=== PATIENT | male | born 1985 | race Caucasian/White ===

== ENCOUNTER 2019-12-06 01:02 | Emergency (ER) | payer OTHER ==
[~2019-12-06] VITALS: Ht 177.8 cm; Wt 68.1 kg
[2019-12-06] MEDS ORDERED: IV NORMAL SALINE 1000ML BAG 1,000 ML IV ONE (02:15)
--- NOTE | 2019-12-06 02:29 | RAD ---
Examination: CT head and cervical spine without contrast CT HEAD INDICATION: Reason: syncope, neck pain / Spl. Instructions: / History: COMPARISON: None Available. Exposure: One or more of the following individualized dose reduction techniques were utilized for this examination: 1. Automated exposure control 2. Adjustment of the mA and/or kV according to patient size 3. Use of iterative reconstruction technique TECHNIQUE: 5 mm contiguous axial images were obtained from the skull base to the vertex in both bone and soft tissue algorithm. FINDINGS: No abnormal attenuation within the brain parenchyma. No evidence of acute intracranial hemorrhage. No extra-axial fluid collections. No mass effect or midline shift. Ventricular size is appropriate. Basal cisterns are patent. No fractures identified.Cardenas-white differentiation is preserved.Globes and orbits are within normal limits. Paranasal sinuses and mastoid air cells are clear. IMPRESSION: Unremarkable CT examination of the head without contrast, as above. Specifically, no evidence of an acute intracranial abnormality. CT CERVICAL SPINE INDICATION: Reason: syncope, neck pain / Spl. Instructions: / History: COMPARISON: None Available. Technique: 2.5 mm contiguous axial images were obtained from the skull base through the cervicothoracic junction in both bone and soft tissue algorithm. Additional sagittal and coronal reconstructions were also performed. FINDINGS: Vertebral body height and alignment are maintained. Cervical lordosis is preserved. The lateral masses of C1 are aligned upon C2. No fractures identified. The bony canal is patent throughout. No significant degenerative changes are identified. The paraspinous soft tissues are unremarkable. Visualized intracranial contents are unremarkable. Lung apices are clear. IMPRESSION: Unremarkable CT examination of the cervical spine, as above. Specifically, no fractures are seen. Electronically signed by: Andi Ambrose MD (12/06/2019 2:27 AM) [id number]
[2019-12-06 03:17] LABS: BASO # 0.1 x10^3/uL (0.0-0.2); BASO % 1 % (0-3); EOS # 0.1 x10^3/uL (0.0-0.7); EOS % 1 % (0-3); HEMATOCRIT 31.9 % (39.0-53.0); HEMOGLOBIN 10.5 g/dL (13.0-17.5); LYMPH # 1.4 x10^3/uL (1.0-4.8); LYMPH % 16 % (24-48); MEAN CORPUSCULAR HEMOGLOBIN 26 pg (25-35); MEAN CORPUSCULAR HGB CONC 33 g/dL (31-37); MEAN CORPUSCULAR VOLUME 80 fL (79-100); MONO # 0.5 x10^3/uL (0.0-1.1); MONO % 6 % (0-9); NEUT # 7.1 x10^3/uL (1.8-7.7); NEUT % 77 % (31-73); PLATELET COUNT 436 x10^3/uL (140-400); RED BLOOD COUNT 4.01 x10^6/uL (4.30-5.70); WHITE BLOOD COUNT 9.2 x10^3/uL (4.0-11.0)
[2019-12-06 03:19] LABS: BILIRUBIN,URINE NEGATIVE (NEG); CLARITY,URINE CLEAR; COLOR,URINE YELLOW; NITRITE,URINE POSITIVE (NEG); PROTEIN,URINE NEGATIVE (NEG-TRACE); UROBILINOGEN,URINE 0.2 mg/dL (0.2 mg/dL)
[2019-12-06 03:25] LABS: AMPHETAMINE/METHAMPHETAMINE NEG (NEG); BARBITURATES NEG (NEG); BENZODIAZEPINES NEG (NEG); CANNABINOIDS NEG (NEG); COCAINE NEG (NEG); METHADONE NEG (NEG); OPIATES NEG (NEG); PHENCYCLIDINE NEG (NEG)
[2019-12-06 03:30] LABS: SQUAMOUS EPITHELIAL CELL,UR FEW /LPF
[2019-12-06 03:31] LABS: BACTERIA,URINE FEW /HPF (0-FEW); RBC,URINE 0 /HPF (0-2)
[2019-12-06 03:32] LABS: CALCIUM 8.9 mg/dL (8.5-10.1); CREATININE 1.7 mg/dL (0.7-1.3); GFR 46.1; POTASSIUM 4.4 mmol/L (3.5-5.1)
[2019-12-06 03:37] LABS: ALBUMIN 3.1 g/dL (3.4-5.0); ALBUMIN/GLOBULIN RATIO 0.5 (1.0-1.7); MAGNESIUM 2.2 mg/dL (1.8-2.4); TOTAL BILIRUBIN 0.1 mg/dL (0.2-1.0)
--- NOTE | 2019-12-06 04:35 | PHYS DOC ---
Past Medical History Past Medical History: Hypertension, Stroke, Other Additional Past Medical Histor: Paraplegia, Muscular Dystrophy, Neurogenic Bladder, Colostomy Past Surgical History: Other Additional Past Surgical Histo: spinal fusion,gastrostomy,colostomy, suprapubic cathether Smoking Status: Former Smoker Alcohol Use: None General Adult EDM: Chief Complaint: LOSS OF CONSCIOUSNESS HPI: HPI: Patient is a 34 year old [f__sex] who presents with [] Review of Systems: Review of Systems: Constitutional: Denies fever or chills. [] Eyes: Denies change in visual acuity. [] HENT: Denies nasal congestion or sore throat. [] Respiratory: Denies cough or shortness of breath. [] Cardiovascular: Denies chest pain or edema. [] GI: Denies abdominal pain, nausea, vomiting, bloody stools or diarrhea. [] : Denies dysuria. [] Musculoskeletal: Denies back pain or joint pain. [] Integument: Denies rash. [] Neurologic: Denies headache, focal weakness or sensory changes. [] Endocrine: Denies polyuria or polydipsia. [] Lymphatic: Denies swollen glands. [] Psychiatric: Denies depression or anxiety. [] Heart Score: Risk Factors: Risk Factors: DM, Current or recent (<one month) smoker, HTN, HLP, family history of CAD, obesity. Risk Scores: Score 0 - 3: 2.5% MACE over next 6 weeks - Discharge Home Score 4 - 6: 20.3% MACE over next 6 weeks - Admit for Clinical Observation Score 7 - 10: 72.7% MACE over next 6 weeks - Early Invasive Strategies Current Medications: Current Medications Medications (Trade) Dose Ordered Sig/Valentina Start Time Stop Time Status Last Admin Dose Admin Sodium Chloride 1,000 ml @ 1,000 mls/hr 1X ONCE 12/06/19 02:15 12/06/19 03:14 DC 12/06/19 03:04 1,000 MLS/HR Allergies: Allergies: Allergies Coded Allergies Type Severity Reaction Last Updated Verified Sulfa (Sulfonamide Antibiotics) Allergy Intermediate Rash 12/06/19 Yes Physical Exam: PE: Constitutional: Well developed, well nourished, no acute distress, non-toxic appearance. [] HENT: Normocephalic, atraumatic, bilateral external ears normal, oropharynx moist, no oral exudates, nose normal. [] Eyes: PERRLA, EOMI, conjunctiva normal, no discharge. [] Neck: Normal range of motion, no tenderness, supple, no stridor. [] Cardiovascular:Heart rate regular rhythm, no murmur [] Lungs & Thorax: Bilateral breath sounds clear to auscultation [] Abdomen: Bowel sounds normal, soft, no tenderness, no masses, no pulsatile masses. [] Skin: Warm, dry, no erythema, no rash. [] Back: No tenderness, no CVA tenderness. [] Extremities: No tenderness, no cyanosis, no clubbing, ROM intact, no edema. [] Neurologic: Alert and oriented X 3, normal motor function, normal sensory function, no focal deficits noted. [] Psychologic: Affect normal, judgement normal, mood normal. [] Current Patient Data: Labs: Laboratory Tests Test 12/06/19 02:55 White Blood Count 9.2 x10^3/uL (4.0-11.0) Red Blood Count 4.01 x10^6/uL (4.30-5.70) L Hemoglobin 10.5 g/dL (13.0-17.5) L Hematocrit 31.9 % (39.0-53.0) L Mean Corpuscular Volume 80 fL (79-100) Mean Corpuscular Hemoglobin 26 pg (25-35) Mean Corpuscular Hemoglobin Concent 33 g/dL (31-37) Red Cell Distribution Width 18.0 % (11.5-14.5) H Platelet Count 436 x10^3/uL (140-400) H Neutrophils (%) (Auto) 77 % (31-73) H Lymphocytes (%) (Auto) 16 % (24-48) L Monocytes (%) (Auto) 6 % (0-9) Eosinophils (%) (Auto) 1 % (0-3) Basophils (%) (Auto) 1 % (0-3) Neutrophils # (Auto) 7.1 x10^3/uL (1.8-7.7) Lymphocytes # (Auto) 1.4 x10^3/uL (1.0-4.8) Monocytes # (Auto) 0.5 x10^3/uL (0.0-1.1) Eosinophils # (Auto) 0.1 x10^3/uL (0.0-0.7) Basophils # (Auto) 0.1 x10^3/uL (0.0-0.2) Urine Collection Type U cath Urine Color Yellow Urine Clarity Clear Urine pH 6.0 (<5.0-8.0) Urine Specific [place] 1.010 (1.000-1.030) Urine Protein Negative mg/dL (NEG-TRACE) Urine Glucose (UA) Negative mg/dL (NEG) Urine Ketones (Stick) Negative mg/dL (NEG) Urine Blood Negative (NEG) Urine Nitrite Positive (NEG) Urine Bilirubin Negative (NEG) Urine Urobilinogen Dipstick 0.2 mg/dL (0.2 mg/dL) Urine Leukocyte Esterase Moderate (NEG) Urine RBC 0 /HPF (0-2) Urine WBC 11-20 /HPF (0-4) Urine Squamous Epithelial Cells Few /LPF Urine Bacteria Few /HPF (0-FEW) Urine Mucus Slight /LPF Sodium Level 142 mmol/L (136-145) Potassium Level 4.4 mmol/L (3.5-5.1) Chloride Level 104 mmol/L (98-107) Carbon Dioxide Level 29 mmol/L (21-32) Anion Gap 9 (6-14) Blood Urea Nitrogen 29 mg/dL (8-26) H Creatinine 1.7 mg/dL (0.7-1.3) H Estimated GFR (Cockcroft-Gault) 46.1 BUN/Creatinine Ratio 17 (6-20) Glucose Level 83 mg/dL (70-99) Lactic Acid Level 0.8 mmol/L (0.4-2.0) Calcium Level 8.9 mg/dL (8.5-10.1) Magnesium Level 2.2 mg/dL (1.8-2.4) Total Bilirubin 0.1 mg/dL (0.2-1.0) L Aspartate Amino Transferase (AST) 21 U/L (15-37) Alanine Aminotransferase (ALT) 26 U/L (16-63) Alkaline Phosphatase 70 U/L (46-116) Creatine Kinase 200 U/L (39-308) Creatine Kinase MB (Mass) 1.6 ng/mL (0.0-3.6) Creatine Kinase MB Relative Index 0.8 % (0-4) Troponin I Quantitative < 0.017 ng/mL (0.000-0.055) Total Protein 9.0 g/dL (6.4-8.2) H Albumin 3.1 g/dL (3.4-5.0) L Albumin/Globulin Ratio 0.5 (1.0-1.7) L Urine Opiates Screen Neg (NEG) Urine Methadone Screen Neg (NEG) Urine Barbiturates Neg (NEG) Urine Phencyclidine Screen Neg (NEG) Urine Amphetamine/Methamphetamine Neg (NEG) Urine Benzodiazepines Screen Neg (NEG) Urine Cocaine Screen Neg (NEG) Urine Cannabinoids Screen Neg (NEG) Ethyl Alcohol Level < 10 mg/dL (0-10) Urine Ethyl Alcohol Neg (NEG) Laboratory Tests 12/06/19 02:55 Laboratory Tests 12/06/19 02:55 Vital Signs: Vital Signs Date Time Temp Pulse Resp B/P (MAP) Pulse Ox O2 Delivery O2 Flow Rate FiO2 12/06/19 01:30 98.0 74 16 136/87 (103) 97 Room Air 98.0 EKG: EKG: @0218 NSR at 70bpm, NO ST elevation, QRS 92ms, QT/QTc 372/404ms Radiology/Procedures: Radiology/Procedures: [] Course & Med Decision Making: Course & Med Decision Making Pertinent Labs and Imaging studies reviewed. (See chart for details) [] Dragon Disclaimer: Dragon Disclaimer: This electronic medical record was generated, in whole or in part, using a voice recognition dictation system. Departure Departure Impression: Primary Impression: Syncope Qualified Codes: R55 - Syncope and collapse Additional Impressions: Urinary tract infection Qualified Codes: T83.511A - Infection and inflammatory reaction due to indwelling urethral catheter, initial encounter; N39.0 - Urinary tract inf ection, site not specified Chronic ulcer of sacral region Qualified Codes: L98.492 - Non-pressure chronic ulcer of skin of other sites with fat layer exposed Disposition: HOME, SELF-CARE ([facility]) Condition: STABLE Referrals: NO PCP (PCP) Patient Instructions: Catheter-Associated Urinary Tract Infection FAQs - MORROW, Pressure Ulcer, Syncope, [id number] Scripts Cephalexin (KEFLEX) 500 Mg Capsule 500 MG PO TID for 7 Days, #21 CAP Prov: INES MORE DO 12/06/19 Justicifation of Admission Dx: Justifications for Admission: Justification of Admission Dx: N/A MORE,INES R DO Dec 06, 2019 04:35
[2019-12-06 04:40] LABS: PROTHROMBIN TIME PATIENT 14.1 SEC (11.7-14.0)
[2019-12-06] MEDS ORDERED: cefTRIAXone IV Push 1 GM VIAL. IVP ONE (05:00)
[2019-12-06] MEDS ORDERED: CEPH-264 PO (05:44)
--- NOTE | 2019-12-06 06:18 | EKG ---
[facility] [address] [place] [address] Test Date: 2019-12-06 Test Time: 02:18:34 Pat Name: JESUS VARGAS Department: Room: Gender: M [employer]: : 1985 Requested By: INES MORE Order Number: [id number] Reading MD: Measurements Intervals [place] Rate: 70 P: CA: QRS: 56 QRSD: 92 T: 65 QT: 372 QTc: 404 Interpretive Statements IRREGULAR RHYTHM, NO P-WAVE FOUND OTHERWISE NORMAL ECG RI6.02 No previous ECG available for comparison
[2019-12-06 06:53] VITALS: BP 136/95
== END 2019-12-06 06:27 | disposition home or self-care (01) ==
LOC: EEVIPCON 01:02 → ER 01:02
DX: T83.511A Infection and inflammatory reaction due to indwelling urethral catheter, initial encounter (principal); R55 Syncope and collapse; N39.0 Urinary tract infection, site not specified; L98.492 Non-pressure chronic ulcer of skin of other sites with fat layer exposed; I10 Essential (primary) hypertension; Z86.73 Personal history of transient ischemic attack (TIA), and cerebral infarction without residual deficits; Z87.891 Personal history of nicotine dependence; Z93.1 Gastrostomy status; Z93.3 Colostomy status; Z88.2 Allergy status to sulfonamides; Y84.6 Urinary catheterization as the cause of abnormal reaction of the patient, or of later complication, without mention of misadventure at the time of the procedure; Y92.89 Other specified places as the place of occurrence of the external cause
CPT/HCPCS: 36415; 70450; 72125; 80053; 80307; 81001; 82553; 83605; 83735; 84484; 85025; 85610; 85730; 87086; 93005; 96361; 96374; 99285; G0480; J0696; J7030

== ENCOUNTER 2019-12-21 01:12 | Inpatient (IN) | payer OTHER ==
[2019-12-21] VITALS (7 sets, daily range): BP systolic 101–123; BP diastolic 56–72
[~2019-12-21] VITALS: Ht 177.8 cm; Wt 75.1 kg
[~2019-12-21 01:12] MED LIST: CEPH-264 PO
[2019-12-21 02:03] LABS: BASO % 0 % (0-3); EOS % 0 % (0-3); HEMATOCRIT 28.5 % (39.0-53.0); HEMOGLOBIN 9.3 g/dL (13.0-17.5); LYMPH # 0.8 x10^3/uL (1.0-4.8); LYMPH % 7 % (24-48); MEAN CORPUSCULAR HEMOGLOBIN 26 pg (25-35); MEAN CORPUSCULAR HGB CONC 33 g/dL (31-37); MEAN CORPUSCULAR VOLUME 80 fL (79-100); MONO % 8 % (0-9); NEUT # 10.6 x10^3/uL (1.8-7.7); NEUT % 85 % (31-73); PLATELET COUNT 404 x10^3/uL (140-400); RED BLOOD COUNT 3.54 x10^6/uL (4.30-5.70); RED CELL DISTRIBUTION WIDTH 18.9 % (11.5-14.5); WHITE BLOOD COUNT 12.5 x10^3/uL (4.0-11.0)
[2019-12-21 02:11] LABS: CALCIUM 8.4 mg/dL (8.5-10.1); CREATININE 2.1 mg/dL (0.7-1.3); GFR 36.1; POTASSIUM 3.6 mmol/L (3.5-5.1)
[2019-12-21 02:17] LABS: ALBUMIN 2.2 g/dL (3.4-5.0); ALBUMIN/GLOBULIN RATIO 0.4 (1.0-1.7); TOTAL BILIRUBIN 0.1 mg/dL (0.2-1.0); TOTAL PROTEIN 8.1 g/dL (6.4-8.2)
[2019-12-21 02:18] LABS: BILIRUBIN,URINE NEGATIVE (NEG); CLARITY,URINE CLEAR; COLOR,URINE YELLOW; NITRITE,URINE NEGATIVE (NEG); PROTEIN,URINE 30 mg/dL (NEG-TRACE); UROBILINOGEN,URINE 0.2 mg/dL (0.2 mg/dL)
--- NOTE | 2019-12-21 02:20 | RAD ---
CHEST AP ONLY INDICATION: Reason: FEVER / Spl. Instructions: / History: . COMPARISON STUDY: None. FINDINGS: Lungs: Normal lung volume. No pulmonary mass or consolidation. The tracheobronchial tree and hilar structures are normal. Pleura: No pleural effusion or pneumothorax. Heart and Mediastinum: The cardiomediastinal silhouette is normal. The great vessels of the thorax are normal. IMPRESSION: No acute cardiopulmonary process. Electronically signed by: Luis A Taylor MD (12/21/2019 2:17 AM) [facility]
[2019-12-21 02:27] LABS: SQUAMOUS EPITHELIAL CELL,UR OCC /LPF
[2019-12-21 02:28] LABS: BACTERIA,URINE MANY /HPF (0-FEW); WBC,URINE 20-40 /HPF (0-4)
[2019-12-21] MEDS ORDERED: IV NORMAL SALINE 1000ML BAG 1,000 ML IV ONE ×2 (02:30→09:45)
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
[2019-12-21] MEDS ORDERED: PIP/TAZO PER PHARMACY MC PRN (02:45)
[2019-12-21] MEDS: PIPERACILLIN/TAZOBACTAM 3.375 GM in IV NORMAL SALINE 50ML 50 ML IV SCH ×3 (03:30→18:47)
--- NOTE | 2019-12-21 04:59 | NUR ---
The patient, JESUS VARGAS, 34 y/o, M admitted by ROSENDA MORALEZ MD, was given written information regarding hospital policies, unit procedures and contact persons. Valuables were checked and left with him.
[2019-12-21] MEDS ORDERED: ONDANSETRON PF 4 MG/2 ML VIAL. IV PRN (07:30)
--- NOTE | 2019-12-21 08:49 | PDOC ---
Infectious Disease Note Vital Sign Vital Signs Vital Signs Date Time Temp Pulse Resp B/P (MAP) Pulse Ox O2 Delivery O2 Flow Rate FiO2 12/21/19 07:00 101.7 137 20 119/60 (79) 99 Room Air 101.7 Labs Lab Laboratory Tests Test 12/21/19 01:38 12/21/19 01:51 White Blood Count 12.5 x10^3/uL (4.0-11.0) Red Blood Count 3.54 x10^6/uL (4.30-5.70) Hemoglobin 9.3 g/dL (13.0-17.5) Hematocrit 28.5 % (39.0-53.0) Mean Corpuscular Volume 80 fL (79-100) Mean Corpuscular Hemoglobin 26 pg (25-35) Mean Corpuscular Hemoglobin Concent 33 g/dL (31-37) Red Cell Distribution Width 18.9 % (11.5-14.5) Platelet Count 404 x10^3/uL (140-400) Neutrophils (%) (Auto) 85 % (31-73) Lymphocytes (%) (Auto) 7 % (24-48) Monocytes (%) (Auto) 8 % (0-9) Eosinophils (%) (Auto) 0 % (0-3) Basophils (%) (Auto) 0 % (0-3) Neutrophils # (Auto) 10.6 x10^3/uL (1.8-7.7) Lymphocytes # (Auto) 0.8 x10^3/uL (1.0-4.8) Monocytes # (Auto) 1.0 x10^3/uL (0.0-1.1) Eosinophils # (Auto) 0.0 x10^3/uL (0.0-0.7) Basophils # (Auto) 0.0 x10^3/uL (0.0-0.2) Sodium Level 138 mmol/L (136-145) Potassium Level 3.6 mmol/L (3.5-5.1) Chloride Level 103 mmol/L (98-107) Carbon Dioxide Level 22 mmol/L (21-32) Anion Gap 13 (6-14) Blood Urea Nitrogen 25 mg/dL (8-26) Creatinine 2.1 mg/dL (0.7-1.3) Estimated GFR (Cockcroft-Gault) 36.1 BUN/Creatinine Ratio 12 (6-20) Glucose Level 122 mg/dL (70-99) Lactic Acid Level 1.2 mmol/L (0.4-2.0) Calcium Level 8.4 mg/dL (8.5-10.1) Total Bilirubin 0.1 mg/dL (0.2-1.0) Aspartate Amino Transf (AST/SGOT) 19 U/L (15-37) Alanine Aminotransferase (ALT/SGPT) 20 U/L (16-63) Alkaline Phosphatase 90 U/L (46-116) Total Protein 8.1 g/dL (6.4-8.2) Albumin 2.2 g/dL (3.4-5.0) Albumin/Globulin Ratio 0.4 (1.0-1.7) Urine Collection Type Unknown Urine Color Yellow Urine Clarity Clear Urine pH 6.0 (<5.0-8.0) Urine Specific [place] 1.010 (1.000-1.030) Urine Protein 30 mg/dL (NEG-TRACE) Urine Glucose (UA) Negative mg/dL (NEG) Urine Ketones (Stick) Negative mg/dL (NEG) Urine Blood Trace (NEG) Urine Nitrite Negative (NEG) Urine Bilirubin Negative (NEG) Urine Urobilinogen Dipstick 0.2 mg/dL (0.2 mg/dL) Urine Leukocyte Esterase Moderate (NEG) Urine RBC 1-2 /HPF (0-2) Urine WBC 20-40 /HPF (0-4) Urine Squamous Epithelial Cells Occ /LPF Urine Bacteria Many /HPF (0-FEW) Urine Mucus Slight /LPF Objective Assessment Fever Leukocytosis Sulfa allergy - rash ? UTI - states SP changed in ER MAJOR Multiple wounds paraplegia H/o osteomyelitis of right hip Plan Plan of Care Cont Zosyn Add Dapto and Check CK Labs in am F/u cults Wound care per wound team CT right hip/pelvis - no Contrast with AMJOR # [id number] BEATRIZ FLORES MD Dec 21, 2019 08:49
--- NOTE | 2019-12-21 09:09 | EKG ---
[facility] [address] [place] [address] Test Date: 2019-12-21 Test Time: 02:13:43 Pat Name: JESUS VARGAS Department: Room: Gender: M Field Administrative Assistant: [id number] : 1985 Requested By: MAKI ANDERSON Order Number: [id number] Reading MD: Measurements Intervals [place] Rate: 134 P: 62 MS: 118 QRS: 52 QRSD: 88 T: 35 QT: 292 QTc: 436 Interpretive Statements SINUS TACHYCARDIA LOW LIMB LEAD VOLTAGE QRS(T) CONTOUR ABNORMALITY CONSIDER ANTEROSEPTAL MYOCARDIAL DAMAGE POSSIBLY ABNORMAL ECG RI6.01 No previous ECG available for comparison
[2019-12-21] MEDS: ENOXAPARIN 40 MG/0.4 ML SYRINGE. SQ SCH (09:29)
[2019-12-21] MEDS: ACETAMINOPHEN 325 MG TABLET. PO PRN (09:31)
[2019-12-21] MEDS ORDERED: HYDROcodone/APAP 5/325MG 1 TAB TABLET PO PRN (09:45)
[2019-12-21] MEDS: MORPHINE SULFATE 2 MG/ML VIAL. IV PRN ×3 (10:08→22:05)
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
[2019-12-21] MEDS ORDERED: BACL20TA PO (11:35)
[2019-12-21] MEDS ORDERED: TAMS0.4C97 PO (11:35)
[2019-12-21] MEDS ORDERED: GABA600T7 PO (11:35)
[2019-12-21] MEDS ORDERED: HYDR25TA PO (11:35)
[2019-12-21] MEDS ORDERED: FERR325T14 PO (11:35)
[2019-12-21] MEDS ORDERED: IBUP-1027 PO (11:35)
[2019-12-21] MEDS ORDERED: FOLI0.8C PO (11:35)
[2019-12-21] MEDS ORDERED: CYCL10TA2 PO (11:35)
[2019-12-21] MEDS ORDERED: ACET500T68 PO (11:35)
[2019-12-21] MEDS ORDERED: AMLO5TAB10 PO (11:35)
[2019-12-21] MEDS ORDERED: CITA20TA9 PO (11:35)
[2019-12-21] MEDS ORDERED: OMEP40CA45 PO (11:35)
[2019-12-21] MEDS ORDERED: OXYB10TA26 PO (11:35)
[2019-12-21] MEDS ORDERED: IBUP-1007 PO (11:35)
[2019-12-21] MEDS ORDERED: PNV1TABL25 PO (11:36)
[2019-12-21] MEDS ORDERED: ceftriaxone (11:44)
[2019-12-21] MEDS ORDERED: KETO60VI IM (11:44)
[2019-12-21] MEDS: IV NORMAL SALINE 1000ML BAG 1,000 ML IV SCH (12:07)
[2019-12-21] MEDS: DAPTOmycin (GENERIC) IVPB 450 MG in IV NORMAL SALINE 50ML 50 ML IV SCH (12:07)
[2019-12-21 13:02] LABS: HEMATOCRIT 23.6 % (39.0-53.0); HEMOGLOBIN 7.8 g/dL (13.0-17.5); RED BLOOD COUNT 2.94 x10^6/uL (4.30-5.70); RED CELL DISTRIBUTION WIDTH 18.9 % (11.5-14.5); WHITE BLOOD COUNT 10.6 x10^3/uL (4.0-11.0)
[2019-12-21 13:06] LABS: PROTHROMBIN TIME PATIENT 16.5 SEC (11.7-14.0)
[2019-12-21 13:10] LABS: CALCIUM 7.6 mg/dL (8.5-10.1); GFR 38.2; MAGNESIUM 1.1 mg/dL (1.8-2.4); POTASSIUM 3.8 mmol/L (3.5-5.1)
[2019-12-21] MEDS: MULTIVITAMIN with MINERAL TABLET. PO SCH (13:11)
[2019-12-21] MEDS ORDERED: MAGNESIUM SULFATE 4GM 100 ML IV ONE (13:45)
--- NOTE | 2019-12-21 14:17 | NUR ---
Wound Care Wound care will followup tomorrow after covid results are back. Discussed POC with Jeana LONG, Clinitron bed will be ordered
--- NOTE | 2019-12-21 14:44 | RAD ---
CT scan of the pelvis without contrast 12/21/2019 CLINICAL HISTORY: Right hip infection. TECHNIQUE: Unenhanced, contiguous, 0.625 mm axial sections were obtained through the pelvis and both hips. 3 mm reconstructed sagittal, axial and coronal images were obtained. One or more of the following individualized dose reduction techniques were utilized for this study: 1. Automated exposure control. 2. Adjustment of the mA and/or kV according to patient size. 3. Use of iterative reconstruction technique. FINDINGS: Pedicle screws are seen bilaterally at L3-L4. Stabilizing rods extend superiorly to the lower thoracic spine. A colostomy is seen within the left lower quadrant of the abdomen. A suprapubic catheter is noted in place. The urinary bladder is contracted. A sacral ulcer is seen which measures approximately 9.3 cm in greatest diameter. Increased density is seen within the adjacent soft tissue structures. This extends to abut the inferior sacrum/coccyx. The majority of the coccyx has been eroded as is the inferior aspect of the sacrum. This findings likely reflect chronic osteomyelitis. An ulcer is seen involving the left inferior gluteal region. The ulcer measures 9.5 cm in greatest diameter. It extends to abut the posterior acetabulum. Erosion of the ischial tuberosity to include the majority of the inferior left pubic ramus is noted. An ulcer is seen involving the inferior right gluteal region. This measures 9.4 cm in size. This extends to involve the posterior right acetabulum. The right ischial tuberosity is eroded. The majority of the right inferior pubic ramus have been eroded/destroyed. Heterotopic ossification is seen surrounding the proximal right femurs, right greater than left. Increased soft tissue density is seen surrounding the intertrochanteric region on the proximal right femur consistent with inflammatory/infectious process. No abnormal fluid collection is seen to suggest evidence of an abscess. Small collections of air is seen posterior to the right hip and adjacent to heterotopic bone in this region of the right trochanter suggesting an infectious process. No dislocation is seen. IMPRESSION: Large sacral/gluteal ulcers are seen throughout the pelvis as discussed above. Increased soft tissue density is seen consistent with infectious process. Bony destruction of the inferior sacrum/coccyx, the initial tuberosities and inferior pubic pubic rami are seen consistent with chronic osteomyelitis. This appears to involve the right hip hip and proximal femurs, right greater than left. No abscess is noted. Electronically signed by: Kenroy Corbin MD (12/21/2019 2:41 PM) [id number]
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
[2019-12-21] MEDS: hydrOXYzine 25 MG TABLET PO SCH ×2 (21:00→22:06)
--- NOTE | 2019-12-21 21:19 | NUR ---
Pt received his morphine immediately after removing from omnicell prior to woundcare procedure. Wound care and dressing change took place at approximately 1650.
[2019-12-21] MEDS: GABAPENTIN 400 MG CAPSULE. PO SCH (22:05)
[2019-12-21] MEDS: LACTOBACILLUS RHAMNOSUS GG 1 CAPSULE. PO SCH (22:06)
[2019-12-21] MEDS: CITALOPRAM 20 MG TABLET. PO SCH (22:06)
[2019-12-21] MEDS: TAMSULOSIN 0.4 MG CAP.ER.24H. PO SCH (22:06)
[2019-12-21] MEDS: CYCLOBENZAPRINE 10 MG TABLET. PO SCH (22:06)
[2019-12-21] MEDS: OXYBUTYNIN CHLORIDE 5 MG TABLET PO SCH (22:06)
[2019-12-21] MEDS: HYDROcodone/APAP 10/325 1 TAB TABLET PO PRN (22:56)
[2019-12-22] MEDS: IV NORMAL SALINE 1000ML BAG 1,000 ML IV SCH ×2 (00:15→12:25)
[2019-12-22] MEDS: PIPERACILLIN/TAZOBACTAM 3.375 GM in IV NORMAL SALINE 50ML 50 ML IV SCH ×4 (00:15→17:28)
[2019-12-22] MEDS: MORPHINE SULFATE 2 MG/ML VIAL. IV PRN ×5 (02:29→21:30)
[2019-12-22 03:50] VITALS: BP 107/67
[2019-12-22] MEDS: HYDROcodone/APAP 10/325 1 TAB TABLET PO PRN ×4 (05:24→17:27)
[2019-12-22 07:00] VITALS: BP 111/59
[2019-12-22 07:25] LABS: BASO % 1 % (0-3); EOS # 0.1 x10^3/uL (0.0-0.7); EOS % 2 % (0-3); HEMATOCRIT 24.6 % (39.0-53.0); HEMOGLOBIN 8.2 g/dL (13.0-17.5); LYMPH # 0.9 x10^3/uL (1.0-4.8); LYMPH % 15 % (24-48); MEAN CORPUSCULAR HEMOGLOBIN 27 pg (25-35); MEAN CORPUSCULAR HGB CONC 33 g/dL (31-37); MEAN CORPUSCULAR VOLUME 80 fL (79-100); MONO # 0.8 x10^3/uL (0.0-1.1); MONO % 13 % (0-9); NEUT # 4.5 x10^3/uL (1.8-7.7); NEUT % 70 % (31-73); PLATELET COUNT 350 x10^3/uL (140-400); RED BLOOD COUNT 3.06 x10^6/uL (4.30-5.70); WHITE BLOOD COUNT 6.4 x10^3/uL (4.0-11.0)
[2019-12-22 07:28] LABS: CREATININE 1.9 mg/dL (0.7-1.3); GFR 40.5; POTASSIUM 3.5 mmol/L (3.5-5.1)
--- NOTE | 2019-12-22 08:50 | PDOC ---
Infectious Disease Note Subjective Subjective Still has pain in hip but not generalized. No F/C/s/N/v/D/SOA SPC changed 12/20 ROS ROS o/w neg Vital Sign Vital Signs Vital Signs Date Time Temp Pulse Resp B/P (MAP) Pulse Ox O2 Delivery O2 Flow Rate FiO2 12/22/19 06:26 Room Air 12/22/19 03:50 97.6 106 18 107/67 (80) 96 97.6 Physical Exam PHYSICAL EXAM CONSTITUTIONAL: He is cooperative. He is in no acute distress. HEENT: Pupils equal and reactive. He has normal conjunctivae. Oral cavity: Pharynx is clear. He has good dentition. NECK: Supple, no JVD. LUNGS: Clear to auscultation. HEART: S1 and S2, trace tachy. ABDOMEN: Soft. Colostomy without complications. Suprapubic catheter without complications. SPC: clean EXTREMITIES: No clubbing, cyanosis. His left great toe has an open wound, appears to be clean, no purulence. SKIN: Warm to touch without generalized rash. He has multiple tattoos. He has multiple wounds that are dressed NEUROLOGIC: He is paraplegic, answering questions appropriately. PSYCHIATRIC: Affect is appropriate. Labs Lab Laboratory Tests Test 12/21/19 12:00 12/21/19 12:20 12/22/19 07:00 White Blood Count 10.6 x10^3/uL (4.0-11.0) 6.4 x10^3/uL (4.0-11.0) Red Blood Count 2.94 x10^6/uL (4.30-5.70) 3.06 x10^6/uL (4.30-5.70) Hemoglobin 7.8 g/dL (13.0-17.5) 8.2 g/dL (13.0-17.5) Hematocrit 23.6 % (39.0-53.0) 24.6 % (39.0-53.0) Mean Corpuscular Volume 80 fL (79-100) 80 fL (79-100) Mean Corpuscular Hemoglobin 27 pg (25-35) 27 pg (25-35) Mean Corpuscular Hemoglobin Concent 33 g/dL (31-37) 33 g/dL (31-37) Red Cell Distribution Width 18.9 % (11.5-14.5) 19.0 % (11.5-14.5) Platelet Count 340 x10^3/uL (140-400) 350 x10^3/uL (140-400) Prothrombin Time 16.5 SEC (11.7-14.0) Prothromb Time International Ratio 1.4 (0.8-1.1) Sodium Level 141 mmol/L (136-145) 142 mmol/L (136-145) Potassium Level 3.8 mmol/L (3.5-5.1) 3.5 mmol/L (3.5-5.1) Chloride Level 109 mmol/L (98-107) 109 mmol/L (98-107) Carbon Dioxide Level 20 mmol/L (21-32) 21 mmol/L (21-32) Anion Gap 12 (6-14) 12 (6-14) Blood Urea Nitrogen 20 mg/dL (8-26) 19 mg/dL (8-26) Creatinine 2.0 mg/dL (0.7-1.3) 1.9 mg/dL (0.7-1.3) Estimated GFR (Cockcroft-Gault) 38.2 40.5 Glucose Level 101 mg/dL (70-99) 117 mg/dL (70-99) Calcium Level 7.6 mg/dL (8.5-10.1) 8.0 mg/dL (8.5-10.1) Magnesium Level 1.1 mg/dL (1.8-2.4) 2.0 mg/dL (1.8-2.4) Neutrophils (%) (Auto) 70 % (31-73) Lymphocytes (%) (Auto) 15 % (24-48) Monocytes (%) (Auto) 13 % (0-9) Eosinophils (%) (Auto) 2 % (0-3) Basophils (%) (Auto) 1 % (0-3) Neutrophils # (Auto) 4.5 x10^3/uL (1.8-7.7) Lymphocytes # (Auto) 0.9 x10^3/uL (1.0-4.8) Monocytes # (Auto) 0.8 x10^3/uL (0.0-1.1) Eosinophils # (Auto) 0.1 x10^3/uL (0.0-0.7) Basophils # (Auto) 0.0 x10^3/uL (0.0-0.2) Micro IMPRESSION: Large sacral/gluteal ulcers are seen throughout the pelvis as discussed above. Increased soft tissue density is seen consistent with infectious process. Bony destruction of the inferior sacrum/coccyx, the initial tuberosities and inferior pubic pubic rami are seen consistent with chronic osteomyelitis. This appears to involve the right hip hip and proximal femurs, right greater than left. No abscess is noted. GRAM NEGATIVE RODS:RARE 12/20 GRAM POSITIVE COCCI:FEW SQUAMOUS EPI CELL:RARE Microbiology 12/21/19 Gram Stain - Final, Resulted 12/21/19 Aerobic Culture, Resulted Pending 12/21/19 Blood Culture - Preliminary, Resulted NO GROWTH AFTER 1 DAY Objective Assessment Fever -improving Leukocytosis - better Sulfa allergy - rash ? UTI - states SP changed in ER Hip pain - chronic but states is worsening. CT with chronic Osteomyelitis which is not treated with abx MAJOR - some better Multiple wounds paraplegia H/o osteomyelitis of right hip Elevated CK ? from hip Plan Plan of Care Cont Zosyn Added Dapto and repeat CK in am F/u cults Wound care per wound team Ortho eval D/w nursing BEATRIZ FLORES MD Dec 22, 2019 08:50
[2019-12-22] MEDS: MULTIVITAMIN with MINERAL TABLET. PO SCH (08:55)
[2019-12-22] MEDS: CYCLOBENZAPRINE 10 MG TABLET. PO SCH ×2 (08:55→21:28)
[2019-12-22] MEDS: OXYBUTYNIN CHLORIDE 5 MG TABLET PO SCH ×2 (08:55→21:29)
[2019-12-22] MEDS: ACETAMINOPHEN 325 MG TABLET. PO PRN (08:55)
[2019-12-22] MEDS: PANTOPRAZOLE 40 MG TABLET.DR. PO SCH (08:55)
[2019-12-22] MEDS: ENOXAPARIN 40 MG/0.4 ML SYRINGE. SQ SCH (08:55)
[2019-12-22] MEDS: GABAPENTIN 400 MG CAPSULE. PO SCH ×2 (08:55→21:28)
[2019-12-22] MEDS: FOLIC ACID 1 MG TABLET. PO SCH (08:55)
[2019-12-22] MEDS: LACTOBACILLUS RHAMNOSUS GG 1 CAPSULE. PO SCH ×2 (08:55→21:29)
[2019-12-22] MEDS: FERROUS SULFATE 325 MG TABLET. PO SCH (08:55)
[2019-12-22] MEDS: amLODIPine BESYLATE 5 MG TABLET PO SCH (08:56)
--- NOTE | 2019-12-22 09:10 | PDOC ---
CARDIO Progress Notes Date and Time Date of Service 12/22/2019 Time of Evaluation 1150 Subjective Subjective: No Chest Pain, No shortness of breath, No Palpitations Vitals Vitals Vital Signs Date Time Temp Pulse Resp B/P (MAP) Pulse Ox O2 Delivery O2 Flow Rate FiO2 12/22/19 08:56 117 111/59 12/22/19 08:55 96 Room Air 12/22/19 03:50 97.6 18 97.6 Weight Weight [ ] Input and Output Intake and Output Intake and Output 12/22/19 07:00 Intake Total 4760 ml Output Total 7175 ml Balance -2415 ml Intake Oral 3410 ml Blood Product IV Normal Saline Flush 1350 ml Output Urine Total 6375 ml Stool Total 800 ml # Bowel Movements 1 Laboratory Labs Laboratory Tests Test 12/21/19 12:00 12/21/19 12:20 12/22/19 07:00 White Blood Count 10.6 x10^3/uL (4.0-11.0) 6.4 x10^3/uL (4.0-11.0) Red Blood Count 2.94 x10^6/uL (4.30-5.70) 3.06 x10^6/uL (4.30-5.70) Hemoglobin 7.8 g/dL (13.0-17.5) 8.2 g/dL (13.0-17.5) Hematocrit 23.6 % (39.0-53.0) 24.6 % (39.0-53.0) Mean Corpuscular Volume 80 fL (79-100) 80 fL (79-100) Mean Corpuscular Hemoglobin 27 pg (25-35) 27 pg (25-35) Mean Corpuscular Hemoglobin Concent 33 g/dL (31-37) 33 g/dL (31-37) Red Cell Distribution Width 18.9 % (11.5-14.5) 19.0 % (11.5-14.5) Platelet Count 340 x10^3/uL (140-400) 350 x10^3/uL (140-400) Prothrombin Time 16.5 SEC (11.7-14.0) Prothromb Time International Ratio 1.4 (0.8-1.1) Sodium Level 141 mmol/L (136-145) 142 mmol/L (136-145) Potassium Level 3.8 mmol/L (3.5-5.1) 3.5 mmol/L (3.5-5.1) Chloride Level 109 mmol/L (98-107) 109 mmol/L (98-107) Carbon Dioxide Level 20 mmol/L (21-32) 21 mmol/L (21-32) Anion Gap 12 (6-14) 12 (6-14) Blood Urea Nitrogen 20 mg/dL (8-26) 19 mg/dL (8-26) Creatinine 2.0 mg/dL (0.7-1.3) 1.9 mg/dL (0.7-1.3) Estimated GFR (Cockcroft-Gault) 38.2 40.5 Glucose Level 101 mg/dL (70-99) 117 mg/dL (70-99) Calcium Level 7.6 mg/dL (8.5-10.1) 8.0 mg/dL (8.5-10.1) Magnesium Level 1.1 mg/dL (1.8-2.4) 2.0 mg/dL (1.8-2.4) Neutrophils (%) (Auto) 70 % (31-73) Lymphocytes (%) (Auto) 15 % (24-48) Monocytes (%) (Auto) 13 % (0-9) Eosinophils (%) (Auto) 2 % (0-3) Basophils (%) (Auto) 1 % (0-3) Neutrophils # (Auto) 4.5 x10^3/uL (1.8-7.7) Lymphocytes # (Auto) 0.9 x10^3/uL (1.0-4.8) Monocytes # (Auto) 0.8 x10^3/uL (0.0-1.1) Eosinophils # (Auto) 0.1 x10^3/uL (0.0-0.7) Basophils # (Auto) 0.0 x10^3/uL (0.0-0.2) Microbiology Micro Microbiology 12/21/19 Gram Stain - Final, Resulted 12/21/19 Aerobic Culture, Resulted Pending 12/21/19 Blood Culture - Preliminary, Resulted NO GROWTH AFTER 1 DAY Physical Exam Chest: Symmetric LUNGS: Clear to Auscultation Heart: RRR (sinus tach) Abdomen: Soft N/T Extremities: No Edema Neurology: alert, oriented, follow commands Other Exams Discussed with RN, no discomfort. Rhythm stable Assessment Assessment 1. Fever/sacral wound with possible UTI/osteomyleitis/sepsis 2. MAJOR vs CKD: Cr at 1.9 per PCP 3. Hypomagnesemia: reolaved 4. Normocytic anemia: Hgb stable, 8.2, hemodilutional, no obvious bleed 5. Reactive sinus tachycardia: BP stable. No significnat ectopies 6. Protein malnutrition 7. PUI: pending Covid Recommendations 1. IV hydrate, antibiotics per ID 2. Will obtain TTE if PCR negative for covid and note any semblance of endocarditis. Await cultures. 3. Supportive care. Monitor rhythm Justicifation of Admission Dx: Justifications for Admission: Justification of Admission Dx: Yes GILBERTO KWONG APRN Dec 22, 2019 09:10
[2019-12-22] MEDS ORDERED: IV NORMAL SALINE 500ML BAG 500 ML IV ONE (09:45)
[2019-12-22] MEDS: DAPTOmycin (GENERIC) IVPB 450 MG in IV NORMAL SALINE 50ML 50 ML IV SCH (10:55)
[2019-12-22 11:00] VITALS: BP 93/54
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
[2019-12-22 15:17] VITALS: BP 113/68
--- NOTE | 2019-12-22 17:19 | NUR ---
Wound Care: Pt is covid 19 test pending. Wound care will follow up tomorrow after results for possible wound vac placement. Spoke with ETHAN Hills re: POC. Continue with current dressing changes for now.
--- NOTE | 2019-12-22 18:00 | NUR ---
Vilma RN, and this RN tried twice to get a new IV in this patient. No success. Zosyn and fluids were not given. Previous IV appeared infiltrated. Spoke with devulcanizer charger to see if she was able to. Shift change occurred, therefore 1800 Zosyn was not given on my shift. Informed weight shifter. See if they could be successful.
[2019-12-22 19:00] VITALS: BP 117/65
[2019-12-22] MEDS: hydrOXYzine 25 MG TABLET PO SCH ×2 (21:00→21:28)
[2019-12-22] MEDS: TAMSULOSIN 0.4 MG CAP.ER.24H. PO SCH (21:28)
[2019-12-22] MEDS: CITALOPRAM 20 MG TABLET. PO SCH (21:29)
[2019-12-22 23:00] VITALS: BP 126/71
[2019-12-23] MEDS: PIPERACILLIN/TAZOBACTAM 3.375 GM in IV NORMAL SALINE 50ML 50 ML IV SCH ×5 (00:08→23:58)
[2019-12-23] MEDS: IV NORMAL SALINE 1000ML BAG 1,000 ML IV SCH ×2 (01:45→17:05)
[2019-12-23 03:00] VITALS: BP 107/65
[2019-12-23] MEDS: HYDROcodone/APAP 10/325 1 TAB TABLET PO PRN ×4 (03:08→21:23)
[2019-12-23 05:21] LABS: CALCIUM 7.9 mg/dL (8.5-10.1); CREATININE 1.8 mg/dL (0.7-1.3); GFR 43.2; POTASSIUM 3.9 mmol/L (3.5-5.1)
[2019-12-23] MEDS: PANTOPRAZOLE 40 MG TABLET.DR. PO SCH (06:28)
[2019-12-23 07:00] VITALS: BP 107/58
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
--- NOTE | 2019-12-23 10:27 | PDOC ---
Infectious Disease Note Subjective Subjective Still has pain in hip but not generalized. No F/C/s/N/v/D/SOA SPC changed 12/20 Vital Sign Vital Signs Vital Signs Date Time Temp Pulse Resp B/P (MAP) Pulse Ox O2 Delivery O2 Flow Rate FiO2 12/23/19 06:31 18 95 Room Air 12/23/19 04:08 1.0 12/23/19 03:00 98.0 114 107/65 (79) 98.0 Physical Exam PHYSICAL EXAM CONSTITUTIONAL: He is cooperative. He is in no acute distress. HEENT: Pupils equal and reactive. He has normal conjunctivae. Oral cavity: Pharynx is clear. He has good dentition. NECK: Supple, no JVD. LUNGS: Clear to auscultation. HEART: S1 and S2, trace tachy. ABDOMEN: Soft. Colostomy without complications. Suprapubic catheter without complications. SPC: clean EXTREMITIES: No clubbing, cyanosis. His left great toe has an open wound, appears to be clean, no purulence. SKIN: Warm to touch without generalized rash. He has multiple tattoos. He has multiple wounds that are dressed NEUROLOGIC: He is paraplegic, answering questions appropriately. PSYCHIATRIC: Affect is appropriate. Labs Lab Laboratory Tests Test 12/23/19 04:18 Sodium Level 142 mmol/L (136-145) Potassium Level 3.9 mmol/L (3.5-5.1) Chloride Level 107 mmol/L (98-107) Carbon Dioxide Level 22 mmol/L (21-32) Anion Gap 13 (6-14) Blood Urea Nitrogen 17 mg/dL (8-26) Creatinine 1.8 mg/dL (0.7-1.3) Estimated GFR (Cockcroft-Gault) 43.2 Glucose Level 88 mg/dL (70-99) Calcium Level 7.9 mg/dL (8.5-10.1) Creatine Kinase 76 U/L (39-308) Micro the Microbiology department at [phone] SERRATIA MARCESCENS ANTIMICROBIAL SUSCEPTIBILITY Final Comment NEG TONY 56 SERRATIA MARCESCENS ANTIBIOTIC RESULT INTERPRETATION AMPICILLIN/SULBACTAM 16/8 R* AMIKACIN >32 R AMPICILLIN >16 R AMOXICILLIN/K CLAVULANATE >16/8 R AZTREONAM >16 R CEFTRIAXONE >32 R CEFTAZIDIME >16 R CEFOTAXIME >32 R CEFOXITIN <=8 R* CIPROFLOXACIN >2 R CEFEPIME >16 R CEFUROXIME >16 R CEFTAZIDIME/AVIBACTAM 8 S ERTAPENEM <=0.5 S NITROFURANTOIN >64 R* GENTAMICIN >8 R LEVOFLOXACIN 4 I MEROPENEM 2 I PIPERACILLIN/TAZOBACTAM 16 S TRIMETHOPRIM/SULFAMETHOXAZOLE <=0.5/9.5 S TETRACYCLINE 8 I TOBRAMYCIN >8 R IMPRESSION: Large sacral/gluteal ulcers are seen throughout the pelvis as discussed above. Increased soft tissue density is seen consistent with infectious process. Bony destruction of the inferior sacrum/coccyx, the initial tuberosities and inferior pubic pubic rami are seen consistent with chronic osteomyelitis. This appears to involve the right hip hip and proximal femurs, right greater than left. No abscess is noted. GRAM NEGATIVE RODS:RARE 12/20 GRAM POSITIVE COCCI:FEW SQUAMOUS EPI CELL:RARE Microbiology 12/21/19 Gram Stain - Final, Resulted 12/21/19 Aerobic Culture, Resulted Pending 12/21/19 Blood Culture - Preliminary, Resulted NO GROWTH AFTER 1 DAY Objective Assessment Fever -improving Leukocytosis - better Sulfa allergy - rash UTI - Serratia 12/20 MDR Hip pain - chronic but states is worsening. CT with chronic Osteomyelitis which is not treated with abx MAJOR - some better Multiple wounds Strep G buttock wound paraplegia H/o osteomyelitis of right hip - chronic Elevated CK ? from hip Plan Plan of Care Cont Zosyn change to po Bactrim in am itf stable D/c Dapto F/u COVID F/u cults Wound care per wound team Ortho eval reviewed - Appreciate D/w nursing BEATRIZ FLORES MD Dec 23, 2019 10:27
[2019-12-23 11:00] VITALS: BP 103/59
--- NOTE | 2019-12-23 11:08 | PDOC ---
[facility] [facility] PROGRESS NOTE Chief Complaint Chief Complaint Wounds UTI Fever Sepsis Awaiting possible surgical debridement Hypertension, stroke, paraplegia, muscular dystrophy, neurogenic bladder, colostomy, spinal fusion, gastrostomy, suprapubic catheter, previous tobacco abuse. History of Present Illness History of Present Illness 12/23/2019 Patient seen and examined He has 2 corrections officers present Chart reviewed Discussed with RN 12/22/2019 Patient seen and examined He has 2 corrections officers present His wounds are malodorous Reviewed with RN Reviewed chart Discussed with case management Spoke with the wound care nurse he would like to have the surgeon look at him Vitals/I&O Vitals/I&O: Vital Signs Date Time Temp Pulse Resp B/P (MAP) Pulse Ox O2 Delivery O2 Flow Rate FiO2 12/23/19 06:31 18 95 Room Air 12/23/19 04:08 1.0 12/23/19 03:00 98.0 114 107/65 (79) 98.0 I & O 12/22/19 12/22/19 12/23/19 15:00 23:00 07:00 Intake Total 590 ml Output Total 1300 ml 1500 ml 3000 ml Balance -1300 ml -1500 ml -2410 ml Physical Exam Physical Exam: CONSTITUTIONAL: He is cooperative. He is in no acute distress. HEENT: Pupils equal and reactive. He has normal conjunctivae. Oral cavity: Pharynx is clear. He has good dentition. NECK: Supple, no JVD. LUNGS: Clear to auscultation. HEART: S1 and S2, trace tachy. ABDOMEN: Soft. Colostomy without complications. Suprapubic catheter without complications. SPC: clean EXTREMITIES: No clubbing, cyanosis. His left great toe has an open wound, appears to be clean, no purulence. SKIN: Warm to touch without generalized rash. He has multiple tattoos. He has multiple wounds that are dressed NEUROLOGIC: He is paraplegic, answering questions appropriately. PSYCHIATRIC: Affect is appropriate. General: Alert, Oriented X3 Heart: Regular rate Abdomen: Soft, No tenderness, Other (colostomy and suprapubic in place) Extremities: Other (He has edema, mild, around his feet and ankles. Dorsalis pedis 2+. He has an open wound where his first toe has been amputated, there is a small amount of necrotic debris at the base, no erythema or swelling, there is appear to be good granulation tissue around the site of his left great toe.) Skin: Other Labs Labs: Laboratory Tests Test 12/23/19 04:18 Sodium Level 142 mmol/L (136-145) Potassium Level 3.9 mmol/L (3.5-5.1) Chloride Level 107 mmol/L (98-107) Carbon Dioxide Level 22 mmol/L (21-32) Anion Gap 13 (6-14) Blood Urea Nitrogen 17 mg/dL (8-26) Creatinine 1.8 mg/dL (0.7-1.3) Estimated GFR (Cockcroft-Gault) 43.2 Glucose Level 88 mg/dL (70-99) Calcium Level 7.9 mg/dL (8.5-10.1) Creatine Kinase 76 U/L (39-308) Assessment and Plan Assessmemt and Plan Problems Medical Problems: (1) Decubitus ulcer Status: Acute (2) Fever Status: Acute (3) Suspected COVID-19 virus infection Status: Acute (4) UTI (urinary tract infection) Status: Acut Severe and multiple wounds UTI Fever Sepsis Awaiting possible surgical debridement Hypertension, stroke, paraplegia, muscular dystrophy, neurogenic bladder, colostomy, spinal fusion, gastrostomy, suprapubic catheter, previous tobacco abuse. Plan IV antibiotics He will probably be getting a wound VAC Home meds DVT prophylaxis Full code He might be able to go to select specialty soon Appreciate subspecialist input Per infectious disease please see below; Fever -improving Leukocytosis - better Sulfa allergy - rash UTI - Serratia 12/20 Hip pain - chronic but states is worsening. CT with chronic Osteomyelitis which is not treated with abx MAJOR - some better Multiple wounds Strep G buttock wound paraplegia H/o osteomyelitis of right hip - chronic Elevated CK ? from hip Plan Plan of Care Cont Zosyn hope to po soon D/c Dapto F/u cults Wound care per wound team Ortho eval reviewed - Appreciate Comment Review of Relevant I have reviewed the following items bernadine (where applicable) has been applied. Justicifation of Admission Dx: Justifications for Admission: Justification of Admission Dx: Yes ILAN ZARATE III DO Dec 23, 2019 11:08
--- NOTE | 2019-12-23 12:07 | PDOC ---
GILBERTO KWONG TELEVISION ANCHOR 12/23/19 1207: CARDIO Progress Notes Date and Time Date of Service 12/23/2019 Time of Evaluation 0910 Subjective Subjective: No Chest Pain, No shortness of breath Vitals Vitals Vital Signs Date Time Temp Pulse Resp B/P (MAP) Pulse Ox O2 Delivery O2 Flow Rate FiO2 12/23/19 11:00 99.1 106 18 103/59 (74) 93 Nasal Cannula 1.0 99.1 Weight Weight [ ] Input and Output Intake and Output l Intake and Output 12/23/19 07:00 Intake Total 590 ml Output Total 5800 ml Balance -5210 ml Intake Oral 590 ml Output Urine Total 5800 ml Laboratory Labs Laboratory Tests Test 12/23/19 04:18 Sodium Level 142 mmol/L (136-145) Potassium Level 3.9 mmol/L (3.5-5.1) Chloride Level 107 mmol/L (98-107) Carbon Dioxide Level 22 mmol/L (21-32) Anion Gap 13 (6-14) Blood Urea Nitrogen 17 mg/dL (8-26) Creatinine 1.8 mg/dL (0.7-1.3) Estimated GFR (Cockcroft-Gault) 43.2 Glucose Level 88 mg/dL (70-99) Calcium Level 7.9 mg/dL (8.5-10.1) Creatine Kinase 76 U/L (39-308) Microbiology Micro Microbiology 12/21/19 Urine Culture - Final, Complete 12/21/19 Antimicrobic Susceptibility - Final, Complete 12/21/19 Gram Stain - Final, Resulted 12/21/19 Aerobic Culture - Preliminary, Resulted 12/21/19 Blood Culture - Preliminary, Resulted NO GROWTH AFTER 2 DAYS Physical Exam Chest: Symmetric LUNGS: Clear to Auscultation Heart: RRR (SR) Abdomen: Soft N/T Extremities: No Edema, Other (paraplegic) Neurology: alert, oriented, follow commands Other Exams discussed with director park Assessment 1. Fever/sacral wound with possible UTI/osteomyleitis/sepsis 2. MAJOR vs CKD: Cr at 1.9 per PCP 3. Hypomagnesemia: reolaved 4. Normocytic anemia: Hgb stable, 8.2, hemodilutional, no obvious bleed 5. Reactive sinus tachycardia: BP stable. No significant ectopies 6. Protein malnutrition 7. PUI: pending Covid Recommendations 1. Antibiotics per ID 2. Will obtain TTE if PCR negative for covid and note any semblance of endocarditis. Await cultures. 3. Supportive care. Monitor rhythm Justicifation of Admission Dx: Justifications for Admission: Justification of Admission Dx: Yes AURY ABBASI MD 12/23/19 1733: CARDIO Progress Notes Assessment Assessment Patient seen and evaluated Fever/sacral wound with possible UTI/osteomyleitis/sepsis. Antibiotics as per ID. Cultures pending. Possible echo if COVID negative. CKD Normocytic anemia: Hgb stable, 8.2, hemodilutional, no obvious bleed Reactive sinus tachycardia: BP stable. No significant ectopies PUI: pending Covid GILBERTO KWONG APRN Dec 23, 2019 12:07 AURY ABBASI MD Dec 23, 2019 17:33
[2019-12-23] MEDS: ENOXAPARIN 40 MG/0.4 ML SYRINGE. SQ SCH (12:57)
[2019-12-23] MEDS: amLODIPine BESYLATE 5 MG TABLET PO SCH (12:59)
[2019-12-23] MEDS: CYCLOBENZAPRINE 10 MG TABLET. PO SCH ×2 (12:59→21:22)
[2019-12-23] MEDS: GABAPENTIN 400 MG CAPSULE. PO SCH ×2 (12:59→21:20)
[2019-12-23] MEDS: OXYBUTYNIN CHLORIDE 5 MG TABLET PO SCH ×2 (12:59→21:22)
[2019-12-23] MEDS: LACTOBACILLUS RHAMNOSUS GG 1 CAPSULE. PO SCH ×2 (12:59→21:20)
[2019-12-23] MEDS: MULTIVITAMIN with MINERAL TABLET. PO SCH (12:59)
[2019-12-23] MEDS: FOLIC ACID 1 MG TABLET. PO SCH (13:01)
[2019-12-23] MEDS: FERROUS SULFATE 325 MG TABLET. PO SCH (13:01)
[2019-12-23 15:00] VITALS: BP 117/56
[2019-12-23] MEDS: MORPHINE SULFATE 2 MG/ML VIAL. IV PRN (16:21)
--- NOTE | 2019-12-23 17:52 | NUR ---
Wound Care Will reassess wounds and possible home vac placement tomorrow after discharge plans have been made.
[2019-12-23 19:00] VITALS: BP 114/56
[2019-12-23] MEDS: hydrOXYzine 25 MG TABLET PO SCH (21:00)
[2019-12-23] MEDS: CITALOPRAM 20 MG TABLET. PO SCH (21:20)
[2019-12-23] MEDS: TAMSULOSIN 0.4 MG CAP.ER.24H. PO SCH (21:22)
[2019-12-23 23:00] VITALS: BP 136/58
[2019-12-24 03:00] VITALS: BP 134/60
[2019-12-24] MEDS: HYDROcodone/APAP 10/325 1 TAB TABLET PO PRN ×3 (03:17→18:29)
[2019-12-24] MEDS: PIPERACILLIN/TAZOBACTAM 3.375 GM in IV NORMAL SALINE 50ML 50 ML IV SCH ×4 (06:21→22:39)
[2019-12-24] MEDS: IV NORMAL SALINE 1000ML BAG 1,000 ML IV SCH ×2 (06:22→18:30)
[2019-12-24 06:26] LABS: CREATININE 1.8 mg/dL (0.7-1.3); GFR 43.2
--- NOTE | 2019-12-24 07:14 | NUR ---
IP: Pt's urine culture returned with a (R) Serratia marcescens requiring contact precautions.
[2019-12-24 07:35] VITALS: BP 104/66
--- NOTE | 2019-12-24 08:37 | PDOC ---
Infectious Disease Note Subjective Subjective Still has pain in hip but not generalized. No N/v/D/SOA/rash Some sweats SPC changed 12/20 Vital Sign Vital Signs Vital Signs Date Time Temp Pulse Resp B/P (MAP) Pulse Ox O2 Delivery O2 Flow Rate FiO2 12/24/19 04:17 20 93 Room Air 1.0 12/24/19 03:00 98.9 94 134/60 (84) 98.9 Physical Exam PHYSICAL EXAM CONSTITUTIONAL: He is cooperative. He is in no acute distress. HEENT: Pupils equal and reactive. He has normal conjunctivae. Oral cavity: Pharynx is clear. He has good dentition. NECK: Supple, no JVD. LUNGS: Clear to auscultation. HEART: S1 and S2, trace tachy. ABDOMEN: Soft. Colostomy without complications. Suprapubic catheter without complications. SPC: clean EXTREMITIES: No clubbing, cyanosis. His left great toe has an open wound, appears to be clean, no purulence. SKIN: Warm to touch without generalized rash. He has multiple tattoos. He has multiple wounds that are dressed. Toe wound is very clean today NEUROLOGIC: He is paraplegic, answering questions appropriately. PSYCHIATRIC: Affect is appropriate. Labs Lab Laboratory Tests Test 12/24/19 05:00 Sodium Level 141 mmol/L (136-145) Potassium Level 4.0 mmol/L (3.5-5.1) Chloride Level 106 mmol/L (98-107) Carbon Dioxide Level 26 mmol/L (21-32) Anion Gap 9 (6-14) Blood Urea Nitrogen 20 mg/dL (8-26) Creatinine 1.8 mg/dL (0.7-1.3) Estimated GFR (Cockcroft-Gault) 43.2 Glucose Level 114 mg/dL (70-99) Calcium Level 8.0 mg/dL (8.5-10.1) Micro the Microbiology department at [phone] SERRATIA MARCESCENS ANTIMICROBIAL SUSCEPTIBILITY Final Comment NEG TONY 55 SERRATIA MARCESCENS ANTIBIOTIC RESULT INTERPRETATION AMPICILLIN/SULBACTAM 16/8 R* AMIKACIN >32 R AMPICILLIN >16 R AMOXICILLIN/K CLAVULANATE >16/8 R AZTREONAM >16 R CEFTRIAXONE >32 R CEFTAZIDIME >16 R CEFOTAXIME >32 R CEFOXITIN <=8 R* CIPROFLOXACIN >2 R CEFEPIME >16 R CEFUROXIME >16 R CEFTAZIDIME/AVIBACTAM 8 S ERTAPENEM <=0.5 S NITROFURANTOIN >64 R* GENTAMICIN >8 R LEVOFLOXACIN 4 I MEROPENEM 2 I PIPERACILLIN/TAZOBACTAM 16 S TRIMETHOPRIM/SULFAMETHOXAZOLE <=0.5/9.5 S TETRACYCLINE 8 I TOBRAMYCIN >8 R IMPRESSION: Large sacral/gluteal ulcers are seen throughout the pelvis as discussed above. Increased soft tissue density is seen consistent with infectious process. Bony destruction of the inferior sacrum/coccyx, the initial tuberosities and inferior pubic pubic rami are seen consistent with chronic osteomyelitis. This appears to involve the right hip hip and proximal femurs, right greater than left. No abscess is noted. GRAM NEGATIVE RODS:RARE 12/20 GRAM POSITIVE COCCI:FEW SQUAMOUS EPI CELL:RARE Microbiology 12/21/19 Gram Stain - Final, Resulted 12/21/19 Aerobic Culture, Resulted Pending 12/21/19 Blood Culture - Preliminary, Resulted NO GROWTH AFTER 1 DAY Objective Assessment Fever - mild elevation - COVID - neg Leukocytosis - better Sulfa allergy - rash UTI - Serratia 12/20 MDR Hip pain - chronic but states is worsening. CT with chronic Osteomyelitis which is not treated with abx MAJOR - some better Multiple wounds Strep G buttock wound. oe wound clean per Ortho today paraplegia H/o osteomyelitis of right hip - chronic Elevated CK ? from hip Plan Plan of Care Cont Zosyn can't change to Bactrim with Sulfa allergy Add Fluconazole If spikes will check blood cults and add back Dapto D/c Dapto F/u cults Wound care per wound team Ortho eval reviewed - Appreciate D/w nursing BEATRIZ FLORES MD Dec 24, 2019 08:37
[2019-12-24 08:54] LABS: BASO % 1 % (0-3); EOS # 0.2 x10^3/uL (0.0-0.7); EOS % 3 % (0-3); HEMATOCRIT 24.4 % (39.0-53.0); HEMOGLOBIN 7.9 g/dL (13.0-17.5); LYMPH # 1.2 x10^3/uL (1.0-4.8); LYMPH % 21 % (24-48); MEAN CORPUSCULAR HEMOGLOBIN 26 pg (25-35); MEAN CORPUSCULAR HGB CONC 32 g/dL (31-37); MEAN CORPUSCULAR VOLUME 80 fL (79-100); MONO # 0.7 x10^3/uL (0.0-1.1); MONO % 11 % (0-9); NEUT # 3.8 x10^3/uL (1.8-7.7); NEUT % 65 % (31-73); PLATELET COUNT 398 x10^3/uL (140-400); RED BLOOD COUNT 3.04 x10^6/uL (4.30-5.70); RED CELL DISTRIBUTION WIDTH 18.6 % (11.5-14.5); WHITE BLOOD COUNT 5.9 x10^3/uL (4.0-11.0)
--- NOTE | 2019-12-24 08:58 | PDOC ---
ORTHO PROGRESS NOTES Subjective No change in his complaints. Vitals Vital Signs Date Time Temp Pulse Resp B/P (MAP) Pulse Ox O2 Delivery O2 Flow Rate FiO2 12/24/19 04:17 20 93 Room Air 1.0 12/24/19 03:00 98.9 94 134/60 (84) 98.9 Labs Laboratory Tests Test 12/23/19 04:18 12/24/19 05:00 Sodium Level 142 mmol/L (136-145) 141 mmol/L (136-145) Potassium Level 3.9 mmol/L (3.5-5.1) 4.0 mmol/L (3.5-5.1) Chloride Level 107 mmol/L (98-107) 106 mmol/L (98-107) Carbon Dioxide Level 22 mmol/L (21-32) 26 mmol/L (21-32) Anion Gap 13 (6-14) 9 (6-14) Blood Urea Nitrogen 17 mg/dL (8-26) 20 mg/dL (8-26) Creatinine 1.8 mg/dL (0.7-1.3) 1.8 mg/dL (0.7-1.3) Estimated GFR (Cockcroft-Gault) 43.2 43.2 Glucose Level 88 mg/dL (70-99) 114 mg/dL (70-99) Calcium Level 7.9 mg/dL (8.5-10.1) 8.0 mg/dL (8.5-10.1) Creatine Kinase 76 U/L (39-308) White Blood Count 5.9 x10^3/uL (4.0-11.0) Red Blood Count 3.04 x10^6/uL (4.30-5.70) Hemoglobin 7.9 g/dL (13.0-17.5) Hematocrit 24.4 % (39.0-53.0) Mean Corpuscular Volume 80 fL (79-100) Mean Corpuscular Hemoglobin 26 pg (25-35) Mean Corpuscular Hemoglobin Concent 32 g/dL (31-37) Red Cell Distribution Width 18.6 % (11.5-14.5) Platelet Count 398 x10^3/uL (140-400) Neutrophils (%) (Auto) 65 % (31-73) Lymphocytes (%) (Auto) 21 % (24-48) Monocytes (%) (Auto) 11 % (0-9) Eosinophils (%) (Auto) 3 % (0-3) Basophils (%) (Auto) 1 % (0-3) Neutrophils # (Auto) 3.8 x10^3/uL (1.8-7.7) Lymphocytes # (Auto) 1.2 x10^3/uL (1.0-4.8) Monocytes # (Auto) 0.7 x10^3/uL (0.0-1.1) Eosinophils # (Auto) 0.2 x10^3/uL (0.0-0.7) Basophils # (Auto) 0.0 x10^3/uL (0.0-0.2) Laboratory Tests Test 12/24/19 05:00 White Blood Count 5.9 x10^3/uL (4.0-11.0) Red Blood Count 3.04 x10^6/uL (4.30-5.70) Hemoglobin 7.9 g/dL (13.0-17.5) Hematocrit 24.4 % (39.0-53.0) Mean Corpuscular Volume 80 fL (79-100) Mean Corpuscular Hemoglobin 26 pg (25-35) Mean Corpuscular Hemoglobin Concent 32 g/dL (31-37) Red Cell Distribution Width 18.6 % (11.5-14.5) Platelet Count 398 x10^3/uL (140-400) Neutrophils (%) (Auto) 65 % (31-73) Lymphocytes (%) (Auto) 21 % (24-48) Monocytes (%) (Auto) 11 % (0-9) Eosinophils (%) (Auto) 3 % (0-3) Basophils (%) (Auto) 1 % (0-3) Neutrophils # (Auto) 3.8 x10^3/uL (1.8-7.7) Lymphocytes # (Auto) 1.2 x10^3/uL (1.0-4.8) Monocytes # (Auto) 0.7 x10^3/uL (0.0-1.1) Eosinophils # (Auto) 0.2 x10^3/uL (0.0-0.7) Basophils # (Auto) 0.0 x10^3/uL (0.0-0.2) Sodium Level 141 mmol/L (136-145) Potassium Level 4.0 mmol/L (3.5-5.1) Chloride Level 106 mmol/L (98-107) Carbon Dioxide Level 26 mmol/L (21-32) Anion Gap 9 (6-14) Blood Urea Nitrogen 20 mg/dL (8-26) Creatinine 1.8 mg/dL (0.7-1.3) Estimated GFR (Cockcroft-Gault) 43.2 Glucose Level 114 mg/dL (70-99) Calcium Level 8.0 mg/dL (8.5-10.1) Notes He is awake and alert, his wounds are unchanged. Assessment and Plan Using a rongeur, I debrided some skin and a small amount of necrotic tissue from his left great toe wound, there was granulation tissue present underneath this and a good amount of bleeding. A clean dressing was then applied. Regarding his hip wounds, I recommend wound vacs per the wound care team. I think he will need some more advanced reconstruction but this can occur on a delayed basis once the wound vacs are in place. SHARDA FAITH II, MD Dec 24, 2019 08:58
[2019-12-24] MEDS: amLODIPine BESYLATE 5 MG TABLET PO SCH (09:00)
[2019-12-24] MEDS: FLUCONAZOLE 100 MG TABLET. PO SCH (09:00)
--- NOTE | 2019-12-24 10:02 | PDOC2 ---
CONSULT Date of Consult Date of Consult DATE: 12/24/19 TIME: 09:58 Reason for Consult Reason for Consult: Decubitus ulcers Referring Physician Referring Physician: Beth Identification/Chief Complaint Chief Complaint Generalized pain nonhealing wounds Source Source: Chart review, Patient History of Present Illness Reason for Visit: 34-year-old male who is paraplegic in the group home system has a long history of nonhealing decubitus ulcers on his hips and coccyx he has had surgery for chronic osteomyelitis. Past Medical History Cardiovascular: HTN CENTRAL NERVOUS SYSTEM: TIA Psych: No pertinent hx Musculoskeletal: Other Infectious disease: Other Dermatology: Other Past Surgical History Past Surgical History: Other Family History Family History: Coronary Artery Disease Social History No ALCOHOL: none Drugs: None Lives: with Family Current Problem List Problem List Problems Medical Problems: (1) Decubitus ulcer Status: Acute (2) Fever Status: Acute (3) Suspected COVID-19 virus infection Status: Acute (4) UTI (urinary tract infection) Status: Acute Current Medications Current Medications Current Medications Sodium Chloride 1,000 ml @ 1,000 mls/hr 1X ONCE IV Last administered on 12/21/19at 02:20; Start 12/21/19 at 02:30; Stop 12/21/19 at 03:29; Status DC Piperacillin Sod/ Tazobactam Sod (Zosyn Per Pharmacy) 1 each PRN DAILY PRN MC SEE COMMENTS; Start 12/21/19 at 02:45 Piperacillin Sod/ Tazobactam Sod 3.375 gm/Sodium Chloride 50 ml @ 100 mls/hr Q6HRS IV Last administered on 12/24/19at 06:21; Start 12/21/19 at 03:30 Ondansetron HCl (Zofran) 4 mg PRN Q4HRS PRN IV NAUSEA/VOMITING; Start 12/21/19 at 07:30 Acetaminophen (Tylenol) 650 mg PRN Q4HRS PRN PO TEMP OVER 100.4F OR MILD PAIN Last administered on 12/22/19at 08:55; Start 12/21/19 at 07:30 Enoxaparin Sodium (Lovenox 40mg Syringe) 40 mg Q24H SQ Last administered on 12/23/19at 12:57; Start 12/21/19 at 08:00 Daptomycin 450 mg/ Sodium Chloride 50 ml @ 100 mls/hr Q24H IV Last administered on 12/22/19 10:55; Start 12/21/19 at 10:00; Stop 12/23/19 at 10:26; Status DC Sodium Chloride 1,000 ml @ 75 mls/hr [id number] IV Last administered on 12/24/19 06:22; Start 12/21/19 at 09:45 Sodium Chloride 1,000 ml @ 1,000 mls/hr 1X ONCE IV Last administered on 12/21/19at 09:46; Start 12/21/19 at 09:45; Stop 12/21/19 at 10:44; Status DC Acetaminophen/ Hydrocodone Bitart (Lortab 5/325) 1 tab PRN Q4HRS PRN PO MODERATE PAIN Last administered on 12/21/19at 18:55; Start 12/21/19 at 09:45 Morphine Sulfate (Morphine Sulfate) 2 mg PRN Q2HR PRN IV MODERATE TO SEVERE PAIN Last administered on 12/23/19 16:21; Start 12/21/19 at 09:45 Multivitamins (Thera M Plus) 1 tab DAILY PO Last administered on 12/23/19 12:59; Start 12/21/19 at 13:00 Magnesium Sulfate 100 ml @ 25 mls/hr 1X ONCE IV Last administered on 12/21/19at 13:45; Start 12/21/19 at 13:45; Stop 12/21/19 at 17:44; Status DC Lactobacillus Rhamnosus (Culturelle) 1 cap BID PO Last administered on 12/23/19 21:20; Start 12/21/19 at 21:00 Amlodipine Besylate (Norvasc) 5 mg DAILY PO Last administered on 12/23/19 12:59; Start 12/22/19 at 09:00 Citalopram Hydrobromide (CeleXA) 20 mg HS PO Last administered on 12/23/19 21:20; Start 12/21/19 at 21:00 Cyclobenzaprine HCl (Flexeril) 10 mg BID PO Last administered on 12/23/19 21:22; Start 12/21/19 at 21:00 Ferrous Sulfate (Feosol) 325 mg DAILY PO Last administered on 12/23/19 13:01; Start 12/22/19 at 09:00 Hydroxyzine HCl (Atarax) 50 mg HS PO ; Start 12/21/19 at 21:00 Tamsulosin HCl (Flomax) 0.4 mg HS PO Last administered on 12/23/19at 21:22; Start 12/21/19 at 21:00 Baclofen (Lioresal) 20 mg PRN BID PRN PO MUSCLE SPASMS; Start 12/21/19 at 21:00 Folic Acid (Folic Acid) 1 mg DAILY PO Last administered on 12/23/19at 13:01; Start 12/22/19 at 09:00 Gabapentin (Neurontin) 1,200 mg BID PO Last administered on 12/23/19at 21:20; Start 12/21/19 at 21:00 Pantoprazole Sodium (Protonix) 40 mg DAILYAC PO Last administered on 12/23/19at 06:28; Start 12/22/19 at 07:30 Oxybutynin Chloride (Ditropan) 5 mg BID PO Last administered on 12/23/19at 21:22; Start 12/21/19 at 21:00 Acetaminophen/ Hydrocodone Bitart (Lortab 10/325) 1 tab PRN Q6HRS PRN PO SEVERE PAIN Last administered on 12/24/19at 03:17; Start 12/21/19 at 20:00 Sodium Chloride 500 ml @ 500 mls/hr 1X ONCE IV ; Start 12/22/19 at 09:45; Stop 12/22/19 at 11:00; Status DC Fluconazole (Diflucan) 200 mg DAILY PO ; Start 12/24/19 at 09:00 Active Scripts Active Reported Ketorolac Tromethamine 60 Mg/2 Ml Vial 60 Mg IM BID PRN [ceftriaxone] 1 Gm DAILY Tablet (Pnv Cmb#95/Ferrous Fumarate/Fa) 1 Each Tablet 1 Each PO DAILY Flomax (Tamsulosin Hcl) 0.4 Mg Cap.er.24h 0.4 Mg PO HS Oxybutynin Chloride Er (Oxybutynin Chloride) 10 Mg Tab.er.24 10 Mg PO DAILY Omeprazole 40 Mg Capsule.dr 40 Mg PO DAILY Ibuprofen 600 Mg Tablet 600 Mg PO BID Ibuprofen 400 Mg Tablet 400 Mg PO PRN Q6HRS PRN Hydroxyzine Hcl 25 Mg Tablet 50 Mg PO HS Gabapentin 600 Mg Tablet 1,200 Mg PO BID Folic Acid 0.8 Mg Capsule 0.8 Mg PO DAILY Ferrous Sulfate 325 Mg Tablet 325 Mg PO DAILY Cyclobenzaprine Hcl 10 Mg Tablet 10 Mg PO BID Celexa (Citalopram Hydrobromide) 20 Mg Tablet 20 Mg PO HS Baclofen 20 Mg Tablet 20 Mg PO BID PRN Amlodipine Besylate 5 Mg Tablet 5 Mg PO DAILY Acetaminophen 500 Mg Tablet 500 Mg PO BID Allergies Allergies: Coded Allergies: Sulfa (Sulfonamide Antibiotics) (Verified Allergy, Intermediate, Rash, 12/06/19) I S O L A T I O N *CONTACT* (Verified Allergy, Unknown, 12/24/19) (R) Lakeisha ROS General: YES: Malaise Musculoskeletal: Yes Joint Pain, Yes Other (Nonhealing wounds) Neurological: Yes Weakness Physical Exam General: Alert, Oriented X3, Cooperative, moderate distress HEENT: Atraumatic Lungs: Clear to auscultation, Normal air movement Heart: Regular rate, No murmurs Abdomen: Normal bowel sounds, Soft, No tenderness Extremities: No edema Skin: Other (Large tissue defects on the right and left greater trochanter areas of the hip as well as a large tissue defect in the sacral area there is no foul odor or drainage) Vitals VITALS Vital Signs Date Time Temp Pulse Resp B/P (MAP) Pulse Ox O2 Delivery O2 Flow Rate FiO2 12/24/19 07:35 98.6 85 16 104/66 (79) 97 Room Air 98.6 12/24/19 04:17 1.0 Labs Labs Laboratory Tests Test 12/23/19 04:18 12/24/19 05:00 Sodium Level 142 mmol/L (136-145) 141 mmol/L (136-145) Potassium Level 3.9 mmol/L (3.5-5.1) 4.0 mmol/L (3.5-5.1) Chloride Level 107 mmol/L (98-107) 106 mmol/L (98-107) Carbon Dioxide Level 22 mmol/L (21-32) 26 mmol/L (21-32) Anion Gap 13 (6-14) 9 (6-14) Blood Urea Nitrogen 17 mg/dL (8-26) 20 mg/dL (8-26) Creatinine 1.8 mg/dL (0.7-1.3) 1.8 mg/dL (0.7-1.3) Estimated GFR (Cockcroft-Gault) 43.2 43.2 Glucose Level 88 mg/dL (70-99) 114 mg/dL (70-99) Calcium Level 7.9 mg/dL (8.5-10.1) 8.0 mg/dL (8.5-10.1) Creatine Kinase 76 U/L (39-308) White Blood Count 5.9 x10^3/uL (4.0-11.0) Red Blood Count 3.04 x10^6/uL (4.30-5.70) Hemoglobin 7.9 g/dL (13.0-17.5) Hematocrit 24.4 % (39.0-53.0) Mean Corpuscular Volume 80 fL (79-100) Mean Corpuscular Hemoglobin 26 pg (25-35) Mean Corpuscular Hemoglobin Concent 32 g/dL (31-37) Red Cell Distribution Width 18.6 % (11.5-14.5) Platelet Count 398 x10^3/uL (140-400) Neutrophils (%) (Auto) 65 % (31-73) Lymphocytes (%) (Auto) 21 % (24-48) Monocytes (%) (Auto) 11 % (0-9) Eosinophils (%) (Auto) 3 % (0-3) Basophils (%) (Auto) 1 % (0-3) Neutrophils # (Auto) 3.8 x10^3/uL (1.8-7.7) Lymphocytes # (Auto) 1.2 x10^3/uL (1.0-4.8) Monocytes # (Auto) 0.7 x10^3/uL (0.0-1.1) Eosinophils # (Auto) 0.2 x10^3/uL (0.0-0.7) Basophils # (Auto) 0.0 x10^3/uL (0.0-0.2) Laboratory Tests Test 12/24/19 05:00 White Blood Count 5.9 x10^3/uL (4.0-11.0) Red Blood Count 3.04 x10^6/uL (4.30-5.70) Hemoglobin 7.9 g/dL (13.0-17.5) Hematocrit 24.4 % (39.0-53.0) Mean Corpuscular Volume 80 fL (79-100) Mean Corpuscular Hemoglobin 26 pg (25-35) Mean Corpuscular Hemoglobin Concent 32 g/dL (31-37) Red Cell Distribution Width 18.6 % (11.5-14.5) Platelet Count 398 x10^3/uL (140-400) Neutrophils (%) (Auto) 65 % (31-73) Lymphocytes (%) (Auto) 21 % (24-48) Monocytes (%) (Auto) 11 % (0-9) Eosinophils (%) (Auto) 3 % (0-3) Basophils (%) (Auto) 1 % (0-3) Neutrophils # (Auto) 3.8 x10^3/uL (1.8-7.7) Lymphocytes # (Auto) 1.2 x10^3/uL (1.0-4.8) Monocytes # (Auto) 0.7 x10^3/uL (0.0-1.1) Eosinophils # (Auto) 0.2 x10^3/uL (0.0-0.7) Basophils # (Auto) 0.0 x10^3/uL (0.0-0.2) Sodium Level 141 mmol/L (136-145) Potassium Level 4.0 mmol/L (3.5-5.1) Chloride Level 106 mmol/L (98-107) Carbon Dioxide Level 26 mmol/L (21-32) Anion Gap 9 (6-14) Blood Urea Nitrogen 20 mg/dL (8-26) Creatinine 1.8 mg/dL (0.7-1.3) Estimated GFR (Cockcroft-Gault) 43.2 Glucose Level 114 mg/dL (70-99) Calcium Level 8.0 mg/dL (8.5-10.1) Assessment/Plan Assessment/Plan Chronic osteomyelitis with pressure ulcers of the greater trochanters and sacral area large tissue defects Soft tissue appears to be in good condition no foul odor no drainage some granulation tissue no erythema Would not recommend any soft tissue debridement at this point long-term would be for plastic surgery with some type of tissue flap BARBARA JOHNSON MD Dec 24, 2019 10:02
[2019-12-24 11:00] VITALS: BP 111/74
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
[2019-12-24] MEDS: OXYBUTYNIN CHLORIDE 5 MG TABLET PO SCH ×2 (11:29→22:34)
[2019-12-24] MEDS: GABAPENTIN 400 MG CAPSULE. PO SCH ×2 (11:29→22:35)
[2019-12-24] MEDS: ENOXAPARIN 40 MG/0.4 ML SYRINGE. SQ SCH (11:29)
[2019-12-24] MEDS: CYCLOBENZAPRINE 10 MG TABLET. PO SCH ×2 (11:29→22:34)
[2019-12-24] MEDS: FERROUS SULFATE 325 MG TABLET. PO SCH (11:30)
[2019-12-24] MEDS: MULTIVITAMIN with MINERAL TABLET. PO SCH (11:30)
[2019-12-24] MEDS: LACTOBACILLUS RHAMNOSUS GG 1 CAPSULE. PO SCH ×2 (11:30→22:34)
[2019-12-24] MEDS: FOLIC ACID 1 MG TABLET. PO SCH (11:30)
[2019-12-24] MEDS: PANTOPRAZOLE 40 MG TABLET.DR. PO SCH (11:30)
--- NOTE | 2019-12-24 12:17 | PDOC ---
GILBERTO KWONG [employer] 12/24/19 1217: CARDIO Progress Notes Date and Time Date of Service 12/24/2019 Time of Evaluation 0940 Subjective Subjective: No Chest Pain, No shortness of breath, No Palpitations Vitals Vitals Vital Signs Date Time Temp Pulse Resp B/P (MAP) Pulse Ox O2 Delivery O2 Flow Rate FiO2 12/24/19 11:31 16 Room Air 12/24/19 11:00 98.0 97 111/74 (86) 96 98.0 12/24/19 04:17 1.0 Weight Weight [ ] Input and Output Intake and Output Intake and Output 12/24/19 07:00 Intake Total 2360 ml Output Total 7775 ml Balance -5415 ml Intake Oral 2360 ml Output Urine Total 6575 ml Stool Total 1200 ml # Voids 2 Laboratory Labs Laboratory Tests Test 12/24/19 05:00 White Blood Count 5.9 x10^3/uL (4.0-11.0) Red Blood Count 3.04 x10^6/uL (4.30-5.70) Hemoglobin 7.9 g/dL (13.0-17.5) Hematocrit 24.4 % (39.0-53.0) Mean Corpuscular Volume 80 fL (79-100) Mean Corpuscular Hemoglobin 26 pg (25-35) Mean Corpuscular Hemoglobin Concent 32 g/dL (31-37) Red Cell Distribution Width 18.6 % (11.5-14.5) Platelet Count 398 x10^3/uL (140-400) Neutrophils (%) (Auto) 65 % (31-73) Lymphocytes (%) (Auto) 21 % (24-48) Monocytes (%) (Auto) 11 % (0-9) Eosinophils (%) (Auto) 3 % (0-3) Basophils (%) (Auto) 1 % (0-3) Neutrophils # (Auto) 3.8 x10^3/uL (1.8-7.7) Lymphocytes # (Auto) 1.2 x10^3/uL (1.0-4.8) Monocytes # (Auto) 0.7 x10^3/uL (0.0-1.1) Eosinophils # (Auto) 0.2 x10^3/uL (0.0-0.7) Basophils # (Auto) 0.0 x10^3/uL (0.0-0.2) Sodium Level 141 mmol/L (136-145) Potassium Level 4.0 mmol/L (3.5-5.1) Chloride Level 106 mmol/L (98-107) Carbon Dioxide Level 26 mmol/L (21-32) Anion Gap 9 (6-14) Blood Urea Nitrogen 20 mg/dL (8-26) Creatinine 1.8 mg/dL (0.7-1.3) Estimated GFR (Cockcroft-Gault) 43.2 Glucose Level 114 mg/dL (70-99) Calcium Level 8.0 mg/dL (8.5-10.1) Microbiology Micro Microbiology 12/21/19 Urine Culture - Final, Complete 12/21/19 Antimicrobic Susceptibility - Final, Complete 12/21/19 Gram Stain - Final, Complete 12/21/19 Aerobic Culture - Final, Complete 12/21/19 Blood Culture - Preliminary, Resulted NO GROWTH AFTER 3 DAYS Physical Exam HEENT: Neck Supple W Full Motion Chest: Symmetric LUNGS: Clear to Auscultation Heart: RRR (SR) Abdomen: Soft N/T Extremities: No Edema, Other (paraplegic) Neurology: alert, oriented, follow commands Assessment Assessment 1. Fever/sacral wound with possible UTI/osteomyleitis/sepsis 2. MAJOR vs CKD: Cr at 1.8 per PCP 3. Hypomagnesemia: resolved 4. Normocytic anemia: Hgb stable, 7.9 hemodilutional, no obvious bleed, per PCP 5. Reactive sinus tachycardia: BP stable. No significant ectopies. Much better 6. Protein malnutrition Recommendations 1. Antibiotics per ID. Covid negative. TTE today and note any semblance of endocarditis 2. If TTE unremarkable nothing further cardiac montalvo Justicifation of Admission Dx: Justifications for Admission: Justification of Admission Dx: Yes AURY ABBASI MD 12/24/19 1334: CARDIO Progress Notes Assessment Assessment Patient seen and evaluated Fever/sacral wound with possible UTI/osteomyleitis/sepsis. As per ID MAJOR vs CKD: Cr at 1.8 Normocytic anemia Reactive sinus tachycardia: BP stable. No significant ectopies. Continues to improve. Echo pending. If no significant abnormalities would continue present treatments from a cardiac viewpoint. GILBERTO KWONG [employer] Dec 24, 2019 12:17 AURY ABBASI MD Dec 24, 2019 13:34
[2019-12-24 15:00] VITALS: BP 125/74
--- NOTE | 2019-12-24 15:36 | CARD ---
MR#: [id number] Date of Study: 12/24/2019 Ordering Physician: GILBERTO KWONG, Referring Physician: GILBERTO KWONG Tech: Milka Pedraza [facility] APPROVED REPORT EXAM: Two-dimensional and M-mode echocardiogram with Doppler and color Doppler. Other Information Quality : Average INDICATION Infection: RISK FACTORS Hypertension 2D DIMENSIONS Left Atrium(2D)2.6 (1.6-4.0cm)IVSd1.3 (0.7-1.1cm) Aortic Root(2D)3.5 (2.0-3.7cm)LVDd4.3 (3.9-5.9cm) LVOT Diameter2.4 (1.8-2.4cm)PWd1.1 (0.7-1.1cm) LVDs3.2 (2.5-4.0cm)FS (%) 26.3 % SV43.0 mlLVEF(%)51.9 (>50%) Aortic Valve AoV Peak Husam.126.7cm/sAoV VTI20.5cm AO Peak GR.6.4mmHgLVOT Peak Husam.100.3cm/s AO Mean GR.3mmHgAVA (VMAX)3.69cm2 Mitral Valve MV E Zxpcjues22.0cm/sMV DECEL ZPMW133ug MV A Ouruqnas32.2cm/sE/A Ratio1.0 Pulmonary Valve PV Peak Gzvhhrks941.8cm/s Tricuspid Valve TR P. Djlsnuud600gh/sTR Peak Gr.23mmHg Pulmonary Vein S1 Knvrszek05.8cm/sD2 Ffahksez54.9cm/s PVa aabmrthj23krml LEFT VENTRICLE The left ventricle is normal size. There is mild concentric left ventricular hypertrophy. The left ve ntricular systolic function is normal and the ejection fraction is within normal range. EF 55% There is normal LV segmental wall motion. Tissue Doppler imaging reveals moderate left ventricular diastoli c dysfunction. RIGHT VENTRICLE The right ventricle is normal size. There is normal right ventricular wall thickness. The right ventr icular systolic function is normal. ATRIA The left atrium size is normal. The right atrium size is normal. The interatrial septum is intact wit h no evidence for an atrial septal defect or patent foramen ovale as noted on 2-D or Doppler imaging. AORTIC VALVE The aortic valve is normal in structure and function. Doppler and Color Flow revealed no significant aortic regurgitation. There is no significant aortic valvular stenosis. There is no aortic valvular v egetation. MITRAL VALVE The mitral valve is normal in structure and function. There is no evidence of mitral valve prolapse. Doppler and Color Flow revealed no mitral valve regurgitation noted. TRICUSPID VALVE The tricuspid valve is normal in structure and function. Doppler and Color Flow revealed trace tricus pid regurgitation. Estimated PAP 25 mmHg. PULMONIC VALVE The pulmonary valve is normal in structure and function. Doppler and Color Flow revealed trace pulmon ic valvular regurgitation. There is no pulmonic valvular stenosis. GREAT VESSELS The aortic root is normal in size. The ascending aorta is normal in size. The IVC is normal in size a nd collapses >50% with inspiration. PERICARDIAL EFFUSION There is a trace pericardial effusion. Critical Notification Critical Value: No <Conclusion> The left ventricular systolic function is normal and the ejection fraction is within normal range. EF 55% There is normal LV segmental wall motion. Tissue Doppler imaging reveals moderate left ventricular diastolic dysfunction. Signed by : Horace Gomez, Electronically Approved : 12/24/2019 15:35:16
--- NOTE | 2019-12-24 16:37 | NUR ---
SW following. Spoke with RN and CM. Reviewed chart. Phoned and faxed referral to Tasne[facility] at [facility], , (fax). SW to continue following.
[2019-12-24] MEDS: MORPHINE SULFATE 2 MG/ML VIAL. IV PRN ×2 (16:38→22:40)
--- NOTE | 2019-12-24 18:28 | NUR ---
Wound/Ostomy Care Wound Type/Assessment: Pt with multiple pressure ulcers to bilateral hips, coccyx and left ischium, of varying stages, see wound assessments flow sheet. Wounds appear fairly clean, with minimal slough, but all appear chronic in nature with undermining and thickened scar tissue around edges. Left great toe open amputation site is clean, to surface, red granulation tissue present. Treatment Recommendations/Plan: NPWT to bilateral hip and coccyx wounds, using black foam, pressure set at -150 mmHg d/t multiple wounds and tracking. Left ischium packed with Aquacel AG strip and covered with foam dressing. Left great toe dressed with Xeroform gauze, gauze and tape. Left lateral ankle red but blanchable, covered with foam dressing for protection. All dressings to be changed and pictured on Friday by wound care. Education provided: to pt re: pressure redistribution, NPWT. Offloading surface/device: Pt unable to decide whether he would like the Envella/Clinitron bed at this time, d/t pain. Pt is currently on a P500 bed, will have primary RN readdress with pt tonight. Recommended Referrals/Tests: Discharge Recommendations for dressings: See treatment plan above.
[2019-12-24 19:00] VITALS: BP 131/80
[2019-12-24] MEDS: ACETAMINOPHEN 325 MG TABLET. PO PRN (22:34)
[2019-12-24] MEDS: CITALOPRAM 20 MG TABLET. PO SCH (22:34)
[2019-12-24] MEDS: hydrOXYzine 25 MG TABLET PO SCH (22:34)
[2019-12-24] MEDS: TAMSULOSIN 0.4 MG CAP.ER.24H. PO SCH (22:35)
[2019-12-24 23:00] VITALS: BP 120/75
[2019-12-25 03:31] VITALS: BP 101/70
[2019-12-25 03:44] LABS: BASO % 0 % (0-3); EOS # 0.1 x10^3/uL (0.0-0.7); EOS % 2 % (0-3); HEMATOCRIT 25.7 % (39.0-53.0); HEMOGLOBIN 8.3 g/dL (13.0-17.5); LYMPH # 1.5 x10^3/uL (1.0-4.8); LYMPH % 23 % (24-48); MEAN CORPUSCULAR HEMOGLOBIN 26 pg (25-35); MEAN CORPUSCULAR HGB CONC 32 g/dL (31-37); MEAN CORPUSCULAR VOLUME 80 fL (79-100); MONO # 0.8 x10^3/uL (0.0-1.1); MONO % 12 % (0-9); NEUT # 4.1 x10^3/uL (1.8-7.7); NEUT % 63 % (31-73); PLATELET COUNT 457 x10^3/uL (140-400); RED BLOOD COUNT 3.22 x10^6/uL (4.30-5.70); RED CELL DISTRIBUTION WIDTH 18.4 % (11.5-14.5); WHITE BLOOD COUNT 6.5 x10^3/uL (4.0-11.0)
[2019-12-25 04:06] LABS: CALCIUM 8.5 mg/dL (8.5-10.1); CREATININE 1.8 mg/dL (0.7-1.3); GFR 43.2
[2019-12-25] MEDS: PIPERACILLIN/TAZOBACTAM 3.375 GM in IV NORMAL SALINE 50ML 50 ML IV SCH ×3 (04:41→17:30)
[2019-12-25] MEDS: MORPHINE SULFATE 2 MG/ML VIAL. IV PRN ×5 (04:41→20:05)
[2019-12-25 06:41] VITALS: BP 104/68
[2019-12-25] MEDS: IV NORMAL SALINE 1000ML BAG 1,000 ML IV SCH ×2 (07:23→21:46)
[2019-12-25] MEDS: GABAPENTIN 400 MG CAPSULE. PO SCH ×2 (08:29→21:45)
[2019-12-25] MEDS: CYCLOBENZAPRINE 10 MG TABLET. PO SCH ×2 (08:29→21:45)
[2019-12-25] MEDS: FERROUS SULFATE 325 MG TABLET. PO SCH (08:30)
[2019-12-25] MEDS: FLUCONAZOLE 100 MG TABLET. PO SCH (08:30)
[2019-12-25] MEDS: ENOXAPARIN 40 MG/0.4 ML SYRINGE. SQ SCH (08:30)
[2019-12-25] MEDS: PANTOPRAZOLE 40 MG TABLET.DR. PO SCH (08:31)
[2019-12-25] MEDS: LACTOBACILLUS RHAMNOSUS GG 1 CAPSULE. PO SCH ×2 (08:31→21:45)
[2019-12-25] MEDS: amLODIPine BESYLATE 5 MG TABLET PO SCH (08:31)
[2019-12-25] MEDS: FOLIC ACID 1 MG TABLET. PO SCH (08:31)
[2019-12-25] MEDS: OXYBUTYNIN CHLORIDE 5 MG TABLET PO SCH ×2 (08:31→21:45)
[2019-12-25] MEDS: MULTIVITAMIN with MINERAL TABLET. PO SCH (08:31)
--- NOTE | 2019-12-25 08:46 | PDOC ---
Infectious Disease Note Subjective Subjective Has less pain in hip but not generalized. No N/v/D/SOA/rash Some less sweats SPC changed 12/20 Vital Sign Vital Signs Vital Signs Date Time Temp Pulse Resp B/P (MAP) Pulse Ox O2 Delivery O2 Flow Rate FiO2 12/25/19 08:32 96 Room Air 1.0 12/25/19 08:31 107 104/68 12/25/19 06:41 99.1 16 99.1 Physical Exam PHYSICAL EXAM CONSTITUTIONAL: He is cooperative. He is in no acute distress. HEENT: Pupils equal and reactive. He has normal conjunctivae. Oral cavity: Pharynx is clear. He has good dentition. NECK: Supple, no JVD. LUNGS: Clear to auscultation. HEART: S1 and S2, trace tachy. ABDOMEN: Soft. Colostomy without complications. Suprapubic catheter without complications. SPC: clean EXTREMITIES: No clubbing, cyanosis. His left great toe has an open wound, appears to be clean, no purulence. SKIN: Warm to touch without generalized rash. He has multiple tattoos. He has multiple wounds that are dressed. Toe wound is very clean today NEUROLOGIC: He is paraplegic, answering questions appropriately. PSYCHIATRIC: Affect is appropriate. Labs Lab Laboratory Tests Test 12/25/19 03:30 White Blood Count 6.5 x10^3/uL (4.0-11.0) Red Blood Count 3.22 x10^6/uL (4.30-5.70) Hemoglobin 8.3 g/dL (13.0-17.5) Hematocrit 25.7 % (39.0-53.0) Mean Corpuscular Volume 80 fL (79-100) Mean Corpuscular Hemoglobin 26 pg (25-35) Mean Corpuscular Hemoglobin Concent 32 g/dL (31-37) Red Cell Distribution Width 18.4 % (11.5-14.5) Platelet Count 457 x10^3/uL (140-400) Neutrophils (%) (Auto) 63 % (31-73) Lymphocytes (%) (Auto) 23 % (24-48) Monocytes (%) (Auto) 12 % (0-9) Eosinophils (%) (Auto) 2 % (0-3) Basophils (%) (Auto) 0 % (0-3) Neutrophils # (Auto) 4.1 x10^3/uL (1.8-7.7) Lymphocytes # (Auto) 1.5 x10^3/uL (1.0-4.8) Monocytes # (Auto) 0.8 x10^3/uL (0.0-1.1) Eosinophils # (Auto) 0.1 x10^3/uL (0.0-0.7) Basophils # (Auto) 0.0 x10^3/uL (0.0-0.2) Sodium Level 139 mmol/L (136-145) Potassium Level 4.0 mmol/L (3.5-5.1) Chloride Level 103 mmol/L (98-107) Carbon Dioxide Level 24 mmol/L (21-32) Anion Gap 12 (6-14) Blood Urea Nitrogen 24 mg/dL (8-26) Creatinine 1.8 mg/dL (0.7-1.3) Estimated GFR (Cockcroft-Gault) 43.2 Glucose Level 100 mg/dL (70-99) Calcium Level 8.5 mg/dL (8.5-10.1) Micro the Microbiology department at [phone] SERRATIA MARCESCENS ANTIMICROBIAL SUSCEPTIBILITY Final Comment NEG TONY 56 SERRATIA MARCESCENS ANTIBIOTIC RESULT INTERPRETATION AMPICILLIN/SULBACTAM 16/8 R* AMIKACIN >32 R AMPICILLIN >16 R AMOXICILLIN/K CLAVULANATE >16/8 R AZTREONAM >16 R CEFTRIAXONE >32 R CEFTAZIDIME >16 R CEFOTAXIME >32 R CEFOXITIN <=8 R* CIPROFLOXACIN >2 R CEFEPIME >16 R CEFUROXIME >16 R CEFTAZIDIME/AVIBACTAM 8 S ERTAPENEM <=0.5 S NITROFURANTOIN >64 R* GENTAMICIN >8 R LEVOFLOXACIN 4 I MEROPENEM 2 I PIPERACILLIN/TAZOBACTAM 16 S TRIMETHOPRIM/SULFAMETHOXAZOLE <=0.5/9.5 S TETRACYCLINE 8 I TOBRAMYCIN >8 R IMPRESSION: Large sacral/gluteal ulcers are seen throughout the pelvis as discussed above. Increased soft tissue density is seen consistent with infectious process. Bony destruction of the inferior sacrum/coccyx, the initial tuberosities and inferior pubic pubic rami are seen consistent with chronic osteomyelitis. This appears to involve the right hip hip and proximal femurs, right greater than left. No abscess is noted. GRAM NEGATIVE RODS:RARE 12/20 GRAM POSITIVE COCCI:FEW SQUAMOUS EPI CELL:RARE Microbiology 12/21/19 Gram Stain - Final, Resulted 12/21/19 Aerobic Culture, Resulted Pending 12/21/19 Blood Culture - Preliminary, Resulted NO GROWTH AFTER 1 DAY Objective Assessment Fever - mild elevation - COVID - neg Leukocytosis - better Sulfa allergy - rash UTI - Serratia 12/20 MDR Hip pain - chronic but states is worsening. CT with chronic Osteomyelitis which is not treated with abx MAJOR - some better Multiple wounds Strep G buttock wound. oe wound clean per Ortho today paraplegia H/o osteomyelitis of right hip - chronic Elevated CK ? from hip Plan Plan of Care Cont Zosyn can't change to Bactrim with Sulfa allergy Added Fluconazole If spikes routinely will check blood cults and add back Dapto F/u cults Wound care per wound team Ortho eval reviewed - Appreciate D/w nursing BEATRIZ FLORES MD Dec 25, 2019 08:46
[2019-12-25] MEDS: HYDROcodone/APAP 10/325 1 TAB TABLET PO PRN ×2 (11:44→20:05)
[2019-12-25 11:58] VITALS: BP 93/50
--- NOTE | 2019-12-25 14:09 | PDOC ---
SURGICAL PROGRESS NOTE Subjective Pt with c/o pain Vital Signs Vital Signs Date Time Temp Pulse Resp B/P (MAP) Pulse Ox O2 Delivery O2 Flow Rate FiO2 12/25/19 13:29 96 Room Air 1.0 12/25/19 11:58 99.5 106 16 93/50 (64) 99.5 I&O Intake and Output 12/25/19 07:00 Intake Total 50 ml Output Total 6500 ml Balance -6450 ml Intake Oral 50 ml Output Urine Total 6500 ml General: Alert, Oriented X3, Cooperative, No acute distress Abdomen: Soft Skin: Other (wound vac in place) Labs Laboratory Tests Test 12/24/19 05:00 12/25/19 03:30 White Blood Count 5.9 x10^3/uL (4.0-11.0) 6.5 x10^3/uL (4.0-11.0) Red Blood Count 3.04 x10^6/uL (4.30-5.70) 3.22 x10^6/uL (4.30-5.70) Hemoglobin 7.9 g/dL (13.0-17.5) 8.3 g/dL (13.0-17.5) Hematocrit 24.4 % (39.0-53.0) 25.7 % (39.0-53.0) Mean Corpuscular Volume 80 fL (79-100) 80 fL (79-100) Mean Corpuscular Hemoglobin 26 pg (25-35) 26 pg (25-35) Mean Corpuscular Hemoglobin Concent 32 g/dL (31-37) 32 g/dL (31-37) Red Cell Distribution Width 18.6 % (11.5-14.5) 18.4 % (11.5-14.5) Platelet Count 398 x10^3/uL (140-400) 457 x10^3/uL (140-400) Neutrophils (%) (Auto) 65 % (31-73) 63 % (31-73) Lymphocytes (%) (Auto) 21 % (24-48) 23 % (24-48) Monocytes (%) (Auto) 11 % (0-9) 12 % (0-9) Eosinophils (%) (Auto) 3 % (0-3) 2 % (0-3) Basophils (%) (Auto) 1 % (0-3) 0 % (0-3) Neutrophils # (Auto) 3.8 x10^3/uL (1.8-7.7) 4.1 x10^3/uL (1.8-7.7) Lymphocytes # (Auto) 1.2 x10^3/uL (1.0-4.8) 1.5 x10^3/uL (1.0-4.8) Monocytes # (Auto) 0.7 x10^3/uL (0.0-1.1) 0.8 x10^3/uL (0.0-1.1) Eosinophils # (Auto) 0.2 x10^3/uL (0.0-0.7) 0.1 x10^3/uL (0.0-0.7) Basophils # (Auto) 0.0 x10^3/uL (0.0-0.2) 0.0 x10^3/uL (0.0-0.2) Sodium Level 141 mmol/L (136-145) 139 mmol/L (136-145) Potassium Level 4.0 mmol/L (3.5-5.1) 4.0 mmol/L (3.5-5.1) Chloride Level 106 mmol/L (98-107) 103 mmol/L (98-107) Carbon Dioxide Level 26 mmol/L (21-32) 24 mmol/L (21-32) Anion Gap 9 (6-14) 12 (6-14) Blood Urea Nitrogen 20 mg/dL (8-26) 24 mg/dL (8-26) Creatinine 1.8 mg/dL (0.7-1.3) 1.8 mg/dL (0.7-1.3) Estimated GFR (Cockcroft-Gault) 43.2 43.2 Glucose Level 114 mg/dL (70-99) 100 mg/dL (70-99) Calcium Level 8.0 mg/dL (8.5-10.1) 8.5 mg/dL (8.5-10.1) Laboratory Tests Test 12/25/19 03:30 White Blood Count 6.5 x10^3/uL (4.0-11.0) Red Blood Count 3.22 x10^6/uL (4.30-5.70) Hemoglobin 8.3 g/dL (13.0-17.5) Hematocrit 25.7 % (39.0-53.0) Mean Corpuscular Volume 80 fL (79-100) Mean Corpuscular Hemoglobin 26 pg (25-35) Mean Corpuscular Hemoglobin Concent 32 g/dL (31-37) Red Cell Distribution Width 18.4 % (11.5-14.5) Platelet Count 457 x10^3/uL (140-400) Neutrophils (%) (Auto) 63 % (31-73) Lymphocytes (%) (Auto) 23 % (24-48) Monocytes (%) (Auto) 12 % (0-9) Eosinophils (%) (Auto) 2 % (0-3) Basophils (%) (Auto) 0 % (0-3) Neutrophils # (Auto) 4.1 x10^3/uL (1.8-7.7) Lymphocytes # (Auto) 1.5 x10^3/uL (1.0-4.8) Monocytes # (Auto) 0.8 x10^3/uL (0.0-1.1) Eosinophils # (Auto) 0.1 x10^3/uL (0.0-0.7) Basophils # (Auto) 0.0 x10^3/uL (0.0-0.2) Sodium Level 139 mmol/L (136-145) Potassium Level 4.0 mmol/L (3.5-5.1) Chloride Level 103 mmol/L (98-107) Carbon Dioxide Level 24 mmol/L (21-32) Anion Gap 12 (6-14) Blood Urea Nitrogen 24 mg/dL (8-26) Creatinine 1.8 mg/dL (0.7-1.3) Estimated GFR (Cockcroft-Gault) 43.2 Glucose Level 100 mg/dL (70-99) Calcium Level 8.5 mg/dL (8.5-10.1) Problem List Problems Medical Problems: (1) Decubitus ulcer Status: Acute (2) Fever Status: Acute (3) Suspected COVID-19 virus infection Status: Acute (4) UTI (urinary tract infection) Status: Acute Assessment/Plan decub ulcers cont local wound care Justicifation of Admission Dx: Justifications for Admission: Justification of Admission Dx: Yes AMANDA ROWLEY MD Dec 25, 2019 14:09
[2019-12-25 15:00] VITALS: BP 97/68
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
[2019-12-25 19:00] VITALS: BP 116/67
[2019-12-25] MEDS: CITALOPRAM 20 MG TABLET. PO SCH (21:45)
[2019-12-25] MEDS: TAMSULOSIN 0.4 MG CAP.ER.24H. PO SCH (21:45)
[2019-12-25] MEDS: hydrOXYzine 25 MG TABLET PO SCH (21:46)
[2019-12-25 23:00] VITALS: BP 112/71
[2019-12-26] MEDS: HYDROcodone/APAP 10/325 1 TAB TABLET PO PRN ×4 (00:45→21:32)
[2019-12-26] MEDS: MORPHINE SULFATE 2 MG/ML VIAL. IV PRN ×6 (00:45→23:36)
[2019-12-26] MEDS: PIPERACILLIN/TAZOBACTAM 3.375 GM in IV NORMAL SALINE 50ML 50 ML IV SCH ×5 (00:46→23:37)
[2019-12-26 03:39] LABS: BASO % 1 % (0-3); EOS # 0.1 x10^3/uL (0.0-0.7); EOS % 2 % (0-3); HEMATOCRIT 25.1 % (39.0-53.0); HEMOGLOBIN 8.1 g/dL (13.0-17.5); LYMPH # 1.4 x10^3/uL (1.0-4.8); LYMPH % 22 % (24-48); MEAN CORPUSCULAR HEMOGLOBIN 26 pg (25-35); MEAN CORPUSCULAR HGB CONC 32 g/dL (31-37); MEAN CORPUSCULAR VOLUME 80 fL (79-100); MONO # 0.7 x10^3/uL (0.0-1.1); MONO % 11 % (0-9); NEUT % 64 % (31-73); PLATELET COUNT 516 x10^3/uL (140-400); RED BLOOD COUNT 3.14 x10^6/uL (4.30-5.70); RED CELL DISTRIBUTION WIDTH 17.8 % (11.5-14.5); WHITE BLOOD COUNT 6.3 x10^3/uL (4.0-11.0)
[2019-12-26 04:03] LABS: ALBUMIN 1.8 g/dL (3.4-5.0); ALBUMIN/GLOBULIN RATIO 0.3 (1.0-1.7); CALCIUM 8.4 mg/dL (8.5-10.1); CREATININE 1.9 mg/dL (0.7-1.3); GFR 40.5; POTASSIUM 4.3 mmol/L (3.5-5.1); TOTAL BILIRUBIN 0.2 mg/dL (0.2-1.0); TOTAL PROTEIN 7.7 g/dL (6.4-8.2)
[2019-12-26 04:46] VITALS: BP 111/63
[2019-12-26] MEDS: BACLOFEN 10 MG TABLET. PO PRN (05:50)
[2019-12-26 07:05] VITALS: BP 101/61
[2019-12-26] MEDS: amLODIPine BESYLATE 5 MG TABLET PO SCH (09:00)
[2019-12-26] MEDS: ACETAMINOPHEN 325 MG TABLET. PO PRN (09:25)
[2019-12-26] MEDS: IV NORMAL SALINE 1000ML BAG 1,000 ML IV SCH (09:45)
[2019-12-26] MEDS: ENOXAPARIN 40 MG/0.4 ML SYRINGE. SQ SCH (09:57)
[2019-12-26] MEDS: PANTOPRAZOLE 40 MG TABLET.DR. PO SCH (09:57)
[2019-12-26] MEDS: FLUCONAZOLE 100 MG TABLET. PO SCH (09:57)
[2019-12-26] MEDS: FERROUS SULFATE 325 MG TABLET. PO SCH (09:57)
[2019-12-26] MEDS: LACTOBACILLUS RHAMNOSUS GG 1 CAPSULE. PO SCH ×2 (09:57→21:32)
[2019-12-26] MEDS: CYCLOBENZAPRINE 10 MG TABLET. PO SCH ×2 (09:57→21:33)
[2019-12-26] MEDS: GABAPENTIN 400 MG CAPSULE. PO SCH ×2 (09:57→21:32)
[2019-12-26] MEDS: FOLIC ACID 1 MG TABLET. PO SCH (09:58)
[2019-12-26] MEDS: MULTIVITAMIN with MINERAL TABLET. PO SCH (09:58)
[2019-12-26] MEDS: OXYBUTYNIN CHLORIDE 5 MG TABLET PO SCH ×2 (09:59→21:32)
[2019-12-26 11:05] VITALS: BP 102/65
--- NOTE | 2019-12-26 11:26 | PDOC ---
SURGICAL PROGRESS NOTE Subjective Pt without new c/o Vital Signs Vital Signs Date Time Temp Pulse Resp B/P (MAP) Pulse Ox O2 Delivery O2 Flow Rate FiO2 12/26/19 10:25 96 Room Air 1.0 12/26/19 09:00 105 101/61 12/26/19 07:05 99.1 18 99.1 I&O Intake and Output 12/26/19 07:00 Intake Total 1600 ml Output Total 7250 ml Balance -5650 ml Intake Oral 1600 ml Output Urine Total 6850 ml Stool Total 400 ml General: Alert, Oriented X3, Cooperative, No acute distress Skin: Other (appears intact with wound vac) Labs Laboratory Tests Test 12/25/19 03:30 12/26/19 03:30 White Blood Count 6.5 x10^3/uL (4.0-11.0) 6.3 x10^3/uL (4.0-11.0) Red Blood Count 3.22 x10^6/uL (4.30-5.70) 3.14 x10^6/uL (4.30-5.70) Hemoglobin 8.3 g/dL (13.0-17.5) 8.1 g/dL (13.0-17.5) Hematocrit 25.7 % (39.0-53.0) 25.1 % (39.0-53.0) Mean Corpuscular Volume 80 fL (79-100) 80 fL (79-100) Mean Corpuscular Hemoglobin 26 pg (25-35) 26 pg (25-35) Mean Corpuscular Hemoglobin Concent 32 g/dL (31-37) 32 g/dL (31-37) Red Cell Distribution Width 18.4 % (11.5-14.5) 17.8 % (11.5-14.5) Platelet Count 457 x10^3/uL (140-400) 516 x10^3/uL (140-400) Neutrophils (%) (Auto) 63 % (31-73) 64 % (31-73) Lymphocytes (%) (Auto) 23 % (24-48) 22 % (24-48) Monocytes (%) (Auto) 12 % (0-9) 11 % (0-9) Eosinophils (%) (Auto) 2 % (0-3) 2 % (0-3) Basophils (%) (Auto) 0 % (0-3) 1 % (0-3) Neutrophils # (Auto) 4.1 x10^3/uL (1.8-7.7) 4.0 x10^3/uL (1.8-7.7) Lymphocytes # (Auto) 1.5 x10^3/uL (1.0-4.8) 1.4 x10^3/uL (1.0-4.8) Monocytes # (Auto) 0.8 x10^3/uL (0.0-1.1) 0.7 x10^3/uL (0.0-1.1) Eosinophils # (Auto) 0.1 x10^3/uL (0.0-0.7) 0.1 x10^3/uL (0.0-0.7) Basophils # (Auto) 0.0 x10^3/uL (0.0-0.2) 0.0 x10^3/uL (0.0-0.2) Sodium Level 139 mmol/L (136-145) 137 mmol/L (136-145) Potassium Level 4.0 mmol/L (3.5-5.1) 4.3 mmol/L (3.5-5.1) Chloride Level 103 mmol/L (98-107) 101 mmol/L (98-107) Carbon Dioxide Level 24 mmol/L (21-32) 26 mmol/L (21-32) Anion Gap 12 (6-14) 10 (6-14) Blood Urea Nitrogen 24 mg/dL (8-26) 26 mg/dL (8-26) Creatinine 1.8 mg/dL (0.7-1.3) 1.9 mg/dL (0.7-1.3) Estimated GFR (Cockcroft-Gault) 43.2 40.5 Glucose Level 100 mg/dL (70-99) 101 mg/dL (70-99) Calcium Level 8.5 mg/dL (8.5-10.1) 8.4 mg/dL (8.5-10.1) BUN/Creatinine Ratio 14 (6-20) Total Bilirubin 0.2 mg/dL (0.2-1.0) Aspartate Amino Transf (AST/SGOT) 25 U/L (15-37) Alanine Aminotransferase (ALT/SGPT) 26 U/L (16-63) Alkaline Phosphatase 66 U/L (46-116) Total Protein 7.7 g/dL (6.4-8.2) Albumin 1.8 g/dL (3.4-5.0) Albumin/Globulin Ratio 0.3 (1.0-1.7) Laboratory Tests Test 12/26/19 03:30 White Blood Count 6.3 x10^3/uL (4.0-11.0) Red Blood Count 3.14 x10^6/uL (4.30-5.70) Hemoglobin 8.1 g/dL (13.0-17.5) Hematocrit 25.1 % (39.0-53.0) Mean Corpuscular Volume 80 fL (79-100) Mean Corpuscular Hemoglobin 26 pg (25-35) Mean Corpuscular Hemoglobin Concent 32 g/dL (31-37) Red Cell Distribution Width 17.8 % (11.5-14.5) Platelet Count 516 x10^3/uL (140-400) Neutrophils (%) (Auto) 64 % (31-73) Lymphocytes (%) (Auto) 22 % (24-48) Monocytes (%) (Auto) 11 % (0-9) Eosinophils (%) (Auto) 2 % (0-3) Basophils (%) (Auto) 1 % (0-3) Neutrophils # (Auto) 4.0 x10^3/uL (1.8-7.7) Lymphocytes # (Auto) 1.4 x10^3/uL (1.0-4.8) Monocytes # (Auto) 0.7 x10^3/uL (0.0-1.1) Eosinophils # (Auto) 0.1 x10^3/uL (0.0-0.7) Basophils # (Auto) 0.0 x10^3/uL (0.0-0.2) Sodium Level 137 mmol/L (136-145) Potassium Level 4.3 mmol/L (3.5-5.1) Chloride Level 101 mmol/L (98-107) Carbon Dioxide Level 26 mmol/L (21-32) Anion Gap 10 (6-14) Blood Urea Nitrogen 26 mg/dL (8-26) Creatinine 1.9 mg/dL (0.7-1.3) Estimated GFR (Cockcroft-Gault) 40.5 BUN/Creatinine Ratio 14 (6-20) Glucose Level 101 mg/dL (70-99) Calcium Level 8.4 mg/dL (8.5-10.1) Total Bilirubin 0.2 mg/dL (0.2-1.0) Aspartate Amino Transf (AST/SGOT) 25 U/L (15-37) Alanine Aminotransferase (ALT/SGPT) 26 U/L (16-63) Alkaline Phosphatase 66 U/L (46-116) Total Protein 7.7 g/dL (6.4-8.2) Albumin 1.8 g/dL (3.4-5.0) Albumin/Globulin Ratio 0.3 (1.0-1.7) Problem List Problems Medical Problems: (1) Decubitus ulcer Status: Acute (2) Fever Status: Acute (3) Suspected COVID-19 virus infection Status: Acute (4) UTI (urinary tract infection) Status: Acute Assessment/Plan cont wound vac, no immediate surgical plans favor plastics referral for flap Justicifation of Admission Dx: Justifications for Admission: Justification of Admission Dx: Yes AMANDA ROWLEY MD Dec 26, 2019 11:26
--- NOTE | 2019-12-26 11:54 | PDOC ---
Infectious Disease Note Subjective Subjective Feeling some better this morning Fever Tmax 101.0 last evening ate 100% breakfast Denies N/V/SOA ROS ROS as mentioned above Vital Sign Vital Signs Vital Signs Date Time Temp Pulse Resp B/P (MAP) Pulse Ox O2 Delivery O2 Flow Rate FiO2 12/26/19 10:25 96 Room Air 1.0 12/26/19 09:00 105 101/61 12/26/19 07:05 99.1 18 99.1 Physical Exam PHYSICAL EXAM GENERAL: Propped up in bed, alert and watching TV HEENT: Pupils equal and reactive. Normal conjunctivae. Oral cavity/pharynx is clear. He has good dentition. NECK: Supple, no JVD. LUNGS: Clear to auscultation. HEART: S1 and S2 ABDOMEN: Soft. Colostomy without complications. Suprapubic catheter without complications. (changed 12/20) EXTREMITIES: No clubbing, cyanosis. Left great toe wound- dressed SKIN: Warm to touch without generalized rash. Multiple tattoos. Multiple wounds NEUROLOGIC: Alert, paraplegic, answering questions appropriately. PIVs Labs Lab Laboratory Tests Test 12/26/19 03:30 White Blood Count 6.3 x10^3/uL (4.0-11.0) Red Blood Count 3.14 x10^6/uL (4.30-5.70) Hemoglobin 8.1 g/dL (13.0-17.5) Hematocrit 25.1 % (39.0-53.0) Mean Corpuscular Volume 80 fL (79-100) Mean Corpuscular Hemoglobin 26 pg (25-35) Mean Corpuscular Hemoglobin Concent 32 g/dL (31-37) Red Cell Distribution Width 17.8 % (11.5-14.5) Platelet Count 516 x10^3/uL (140-400) Neutrophils (%) (Auto) 64 % (31-73) Lymphocytes (%) (Auto) 22 % (24-48) Monocytes (%) (Auto) 11 % (0-9) Eosinophils (%) (Auto) 2 % (0-3) Basophils (%) (Auto) 1 % (0-3) Neutrophils # (Auto) 4.0 x10^3/uL (1.8-7.7) Lymphocytes # (Auto) 1.4 x10^3/uL (1.0-4.8) Monocytes # (Auto) 0.7 x10^3/uL (0.0-1.1) Eosinophils # (Auto) 0.1 x10^3/uL (0.0-0.7) Basophils # (Auto) 0.0 x10^3/uL (0.0-0.2) Sodium Level 137 mmol/L (136-145) Potassium Level 4.3 mmol/L (3.5-5.1) Chloride Level 101 mmol/L (98-107) Carbon Dioxide Level 26 mmol/L (21-32) Anion Gap 10 (6-14) Blood Urea Nitrogen 26 mg/dL (8-26) Creatinine 1.9 mg/dL (0.7-1.3) Estimated GFR (Cockcroft-Gault) 40.5 BUN/Creatinine Ratio 14 (6-20) Glucose Level 101 mg/dL (70-99) Calcium Level 8.4 mg/dL (8.5-10.1) Total Bilirubin 0.2 mg/dL (0.2-1.0) Aspartate Amino Transf (AST/SGOT) 25 U/L (15-37) Alanine Aminotransferase (ALT/SGPT) 26 U/L (16-63) Alkaline Phosphatase 66 U/L (46-116) Total Protein 7.7 g/dL (6.4-8.2) Albumin 1.8 g/dL (3.4-5.0) Albumin/Globulin Ratio 0.3 (1.0-1.7) Micro Microbiology 12/21/19 Urine Culture - Final, Complete 12/21/19 Antimicrobic Susceptibility - Final, Complete 12/21/19 Gram Stain - Final, Complete 12/21/19 Aerobic Culture - Final, Complete 12/21/19 Blood Culture - Final, Complete NO GROWTH AFTER 5 DAYS Objective Assessment Fever - mild elevation - COVID - neg Leukocytosis - better Sulfa allergy - rash UTI - Serratia 12/20 MDR Hip pain - chronic but states is worsening. CT with chronic Osteomyelitis which is not treated with abx MAJOR - some better Multiple wounds Strep G/cornybacterium buttock wound. toe wound clean per Ortho Paraplegia H/o osteomyelitis of right hip - chronic Elevated CK ? from hip Plan Plan of Care Zosyn and Fluconazole Probiotics BC x 2 and am labs Wound care per wound team Ortho eval reviewed - Appreciate D/w nursing With fever after Dapto started will add back. F/u cults Attending Co-Sign Attending Co-Sign The patient was seen and interviewed as well as examined at the bedside. The chart was reviewed. The case was discussed. Agree with the plan of care. RICHY ACE APRN Dec 26, 2019 11:54 BEATRIZ FLORES MD Dec 26, 2019 15:40
[2019-12-26 15:00] VITALS: BP 108/68
[2019-12-26] MEDS: DAPTOmycin (GENERIC) IVPB 450 MG in IV NORMAL SALINE 50ML 50 ML IV SCH (15:32)
--- NOTE | 2019-12-26 17:28 | PDOC ---
GENERAL General: Patient examined chart reviewed he has no complaints this evening. Appreciate infectious diseases and general surgery input. Sounds like the plan is for discharge to select on prolonged intravenous antibiotics and plastic surgery consult as an outpatient for further debridement and flap. Continue current management otherwise. Problems: (1) Decubitus ulcer (2) Paraplegia following spinal cord injury VITAL SIGNS Vital Signs/I&O: Vital Signs Date Time Temp Pulse Resp B/P (MAP) Pulse Ox O2 Delivery O2 Flow Rate FiO2 12/26/19 16:24 96 Room Air 1.0 12/26/19 15:00 98.9 98 20 108/68 (81) 98.9 I & O 12/25/19 12/25/19 12/26/19 15:00 23:00 07:00 Intake Total 1200 ml 400 ml Output Total 950 ml 3700 ml 2600 ml Balance -950 ml -2500 ml -2200 ml In general the patient is pleasant laying comfortably in bed in no acute dis tress HEENT exam is unremarkable for acute abnormality Chest is clear to auscultation Heart S1-S2 normal regular rate and rhythm no murmurs or gallops are noted Abdomen soft nontender nondistended no masses organomegaly noted Extremity exam is unchanged from prior ALLERGIES Allergies: Allergies Coded Allergies Type Severity Reaction Last Updated Verified Sulfa (Sulfonamide Antibiotics) Allergy Intermediate Rash 12/06/19 Yes I S O L A T I O N *CONTACT* Allergy Unknown 12/24/19 Yes MEDS Medications: Current Medications Medications (Trade) Dose Ordered Sig/Valentina Start Time Stop Time Status Last Admin Dose Admin Acetaminophen (Tylenol) 650 mg PRN Q4HRS PRN 12/21/19 07:30 12/26/19 09:25 Acetaminophen/ Hydrocodone Bitart (Lortab 10/325) 1 tab PRN Q6HRS PRN 12/21/19 20:00 12/26/19 15:31 Acetaminophen/ Hydrocodone Bitart (Lortab 5/325) 1 tab PRN Q4HRS PRN 12/21/19 09:45 12/21/19 18:55 Amlodipine Besylate (Norvasc) 5 mg DAILY 12/22/19 09:00 12/25/19 08:31 Baclofen (Lioresal) 20 mg PRN BID PRN 12/21/19 21:00 12/26/19 05:50 Citalopram Hydrobromide (CeleXA) 20 mg HS 12/21/19 21:00 12/25/19 21:45 Cyclobenzaprine HCl (Flexeril) 10 mg BID 12/21/19 21:00 12/26/19 09:57 Daptomycin 450 mg/ Sodium Chloride 50 ml @ 100 mls/hr Q24H 12/26/19 15:00 12/26/19 15:32 Enoxaparin Sodium (Lovenox 40mg Syringe) 40 mg Q24H 12/21/19 08:00 12/26/19 09:57 Ferrous Sulfate (Feosol) 325 mg DAILY 12/22/19 09:00 12/26/19 09:57 Fluconazole (Diflucan) 200 mg DAILY 12/24/19 09:00 12/26/19 09:57 Folic Acid (Folic Acid) 1 mg DAILY 12/22/19 09:00 12/26/19 09:58 Gabapentin (Neurontin) 1,200 mg BID 12/21/19 21:00 12/26/19 09:57 Hydroxyzine HCl (Atarax) 50 mg HS 12/21/19 21:00 12/24/19 22:34 Lactobacillus Rhamnosus (Culturelle) 1 cap BID 12/21/19 21:00 12/26/19 09:57 Magnesium Sulfate 100 ml @ 25 mls/hr 1X ONCE 12/21/19 13:45 12/21/19 17:44 DC 12/21/19 13:45 Morphine Sulfate (Morphine Sulfate) 2 mg PRN Q2HR PRN 12/21/19 09:45 12/26/19 15:31 Multivitamins (Thera M Plus) 1 tab DAILY 12/21/19 13:00 12/26/19 09:58 Ondansetron HCl (Zofran) 4 mg PRN Q4HRS PRN 12/21/19 07:30 Oxybutynin Chloride (Ditropan) 5 mg BID 12/21/19 21:00 12/26/19 09:59 Pantoprazole Sodium (Protonix) 40 mg DAILYAC 12/22/19 07:30 12/26/19 09:57 Piperacillin Sod/ Tazobactam Sod (Zosyn Per Pharmacy) 1 each PRN DAILY PRN 12/21/19 02:45 Piperacillin Sod/ Tazobactam Sod 3.375 gm/Sodium Chloride 50 ml @ 100 mls/hr Q6HRS 12/21/19 03:30 12/26/19 12:34 Sodium Chloride 500 ml @ 500 mls/hr 1X ONCE 12/22/19 09:45 12/22/19 11:00 DC Tamsulosin HCl (Flomax) 0.4 mg HS 12/21/19 21:00 12/25/19 21:45 Current Medications Medications (Trade) Dose Ordered Sig/Valentina Route PRN Reason Start Time Stop Time Status Last Admin Dose Admin Daptomycin 450 mg/ Sodium Chloride 50 ml @ 100 mls/hr Q24H IV 12/26/19 15:00 12/26/19 15:32 LAB Lab: Laboratory Tests Test 12/26/19 03:30 White Blood Count 6.3 x10^3/uL (4.0-11.0) Red Blood Count 3.14 x10^6/uL (4.30-5.70) L Hemoglobin 8.1 g/dL (13.0-17.5) L Hematocrit 25.1 % (39.0-53.0) L Mean Corpuscular Volume 80 fL (79-100) Mean Corpuscular Hemoglobin 26 pg (25-35) Mean Corpuscular Hemoglobin Concent 32 g/dL (31-37) Red Cell Distribution Width 17.8 % (11.5-14.5) H Platelet Count 516 x10^3/uL (140-400) H Neutrophils (%) (Auto) 64 % (31-73) Lymphocytes (%) (Auto) 22 % (24-48) L Monocytes (%) (Auto) 11 % (0-9) H Eosinophils (%) (Auto) 2 % (0-3) Basophils (%) (Auto) 1 % (0-3) Neutrophils # (Auto) 4.0 x10^3/uL (1.8-7.7) Lymphocytes # (Auto) 1.4 x10^3/uL (1.0-4.8) Monocytes # (Auto) 0.7 x10^3/uL (0.0-1.1) Eosinophils # (Auto) 0.1 x10^3/uL (0.0-0.7) Basophils # (Auto) 0.0 x10^3/uL (0.0-0.2) Sodium Level 137 mmol/L (136-145) Potassium Level 4.3 mmol/L (3.5-5.1) Chloride Level 101 mmol/L (98-107) Carbon Dioxide Level 26 mmol/L (21-32) Anion Gap 10 (6-14) Blood Urea Nitrogen 26 mg/dL (8-26) Creatinine 1.9 mg/dL (0.7-1.3) H Estimated GFR (Cockcroft-Gault) 40.5 BUN/Creatinine Ratio 14 (6-20) Glucose Level 101 mg/dL (70-99) H Calcium Level 8.4 mg/dL (8.5-10.1) L Total Bilirubin 0.2 mg/dL (0.2-1.0) Aspartate Amino Transferase (AST) 25 U/L (15-37) Alanine Aminotransferase (ALT) 26 U/L (16-63) Alkaline Phosphatase 66 U/L (46-116) Total Protein 7.7 g/dL (6.4-8.2) Albumin 1.8 g/dL (3.4-5.0) L Albumin/Globulin Ratio 0.3 (1.0-1.7) L Laboratory Tests 12/26/19 03:30 Laboratory Tests 12/26/19 03:30 ASSESSMENT & PLAN A&P Plan as noted above This note was created using [employer] and may have omissions and/or errors due to the nature of real-time voice carbon setter. Justicifation of Admission Dx: Justifications for Admission: Justification of Admission Dx: Yes Nutrition Consultation Dietary Evaluation: Recommendations by RD: Dietary education by RD, Increase Calorie Intake, Protein supplementation Comments: regular diet with ensure enlive tid dontae bid mvi Expected Outcomes/Goals: to meet >75% est nutr needs- goal ongoing Malnutrition Findings: Body Fat Depletion (Non Severe: Mod to Severe Weight Status: Appropriate GREGG ROGERS MD Dec 26, 2019 17:28
[2019-12-26 19:00] VITALS: BP 116/75
[2019-12-26] MEDS: CITALOPRAM 20 MG TABLET. PO SCH (21:32)
[2019-12-26] MEDS: TAMSULOSIN 0.4 MG CAP.ER.24H. PO SCH (21:32)
[2019-12-26] MEDS: hydrOXYzine 25 MG TABLET PO SCH (21:33)
[2019-12-26 23:10] VITALS: BP 112/53
--- NOTE | 2019-12-26 23:17 | NUR ---
Report given to ETHAN Bridges and pt transferred to room 263. All belongings with pt. Two guards at bedside.
--- NOTE | 2019-12-26 23:30 | NUR ---
Pt transfer to room 263 per bed accompanied by 2guards, poc explained call light in reach assessment completed vss will resume care and continue to monitor pt.
[2019-12-27] MEDS: IV NORMAL SALINE 1000ML BAG 1,000 ML IV SCH ×4 (03:02→20:59)
[2019-12-27 03:45] VITALS: BP 110/68
[2019-12-27] MEDS: HYDROcodone/APAP 10/325 1 TAB TABLET PO PRN ×3 (03:55→17:37)
[2019-12-27] MEDS: PANTOPRAZOLE 40 MG TABLET.DR. PO SCH (05:52)
[2019-12-27] MEDS: PIPERACILLIN/TAZOBACTAM 3.375 GM in IV NORMAL SALINE 50ML 50 ML IV SCH (05:53)
[2019-12-27 06:16] LABS: HEMATOCRIT 24.9 % (39.0-53.0); HEMOGLOBIN 8.2 g/dL (13.0-17.5); RED BLOOD COUNT 3.12 x10^6/uL (4.30-5.70); RED CELL DISTRIBUTION WIDTH 17.8 % (11.5-14.5); WHITE BLOOD COUNT 7.9 x10^3/uL (4.0-11.0)
[2019-12-27 06:28] LABS: CALCIUM 8.6 mg/dL (8.5-10.1); CREATININE 1.9 mg/dL (0.7-1.3); GFR 40.5
[2019-12-27 07:00] VITALS: BP 108/62
[2019-12-27] MEDS: MULTIVITAMIN with MINERAL TABLET. PO SCH (07:55)
[2019-12-27] MEDS: FLUCONAZOLE 100 MG TABLET. PO SCH (07:55)
[2019-12-27] MEDS: FOLIC ACID 1 MG TABLET. PO SCH (07:55)
[2019-12-27] MEDS: LACTOBACILLUS RHAMNOSUS GG 1 CAPSULE. PO SCH ×2 (07:56→20:48)
[2019-12-27] MEDS: FERROUS SULFATE 325 MG TABLET. PO SCH (07:56)
[2019-12-27] MEDS: GABAPENTIN 400 MG CAPSULE. PO SCH ×2 (07:56→20:48)
[2019-12-27] MEDS: CYCLOBENZAPRINE 10 MG TABLET. PO SCH ×2 (07:57→20:48)
[2019-12-27] MEDS: ENOXAPARIN 40 MG/0.4 ML SYRINGE. SQ SCH (07:57)
[2019-12-27] MEDS: OXYBUTYNIN CHLORIDE 5 MG TABLET PO SCH ×2 (07:57→20:48)
[2019-12-27] MEDS: amLODIPine BESYLATE 5 MG TABLET PO SCH (07:58)
[2019-12-27] MEDS: MORPHINE SULFATE 2 MG/ML VIAL. IV PRN ×3 (08:03→20:49)
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
--- NOTE | 2019-12-27 09:18 | PDOC ---
Infectious Disease Note Subjective Subjective feeling better, pain in hip present ROS ROS no n/v//d/sob Vital Sign Vital Signs Vital Signs Date Time Temp Pulse Resp B/P (MAP) Pulse Ox O2 Delivery O2 Flow Rate FiO2 12/27/19 08:03 18 97 Room Air 12/27/19 07:58 94 108/62 12/27/19 07:00 98.8 98.8 12/26/19 16:24 1.0 Physical Exam PHYSICAL EXAM GENERAL: Propped up in bed, alert and watching TV HEENT: Pupils equal and reactive. Normal conjunctivae. Oral cavity/pharynx is clear. He has good dentition. NECK: Supple, no JVD. LUNGS: Clear to auscultation. HEART: S1 and S2 ABDOMEN: Soft. Colostomy without complications. Suprapubic catheter without complications. (changed 12/20) EXTREMITIES: No clubbing, cyanosis. Left great toe wound- dressed SKIN: Warm to touch without generalized rash. Multiple tattoos. Multiple wounds NEUROLOGIC: Alert, paraplegic, answering questions appropriately. PIVs Labs Lab Laboratory Tests Test 12/27/19 05:50 White Blood Count 7.9 x10^3/uL (4.0-11.0) Red Blood Count 3.12 x10^6/uL (4.30-5.70) Hemoglobin 8.2 g/dL (13.0-17.5) Hematocrit 24.9 % (39.0-53.0) Mean Corpuscular Volume 80 fL (79-100) Mean Corpuscular Hemoglobin 26 pg (25-35) Mean Corpuscular Hemoglobin Concent 33 g/dL (31-37) Red Cell Distribution Width 17.8 % (11.5-14.5) Platelet Count 668 x10^3/uL (140-400) Sodium Level 138 mmol/L (136-145) Potassium Level 4.0 mmol/L (3.5-5.1) Chloride Level 102 mmol/L (98-107) Carbon Dioxide Level 26 mmol/L (21-32) Anion Gap 10 (6-14) Blood Urea Nitrogen 25 mg/dL (8-26) Creatinine 1.9 mg/dL (0.7-1.3) Estimated GFR (Cockcroft-Gault) 40.5 Glucose Level 101 mg/dL (70-99) Calcium Level 8.6 mg/dL (8.5-10.1) Micro Microbiology 12/21/19 Urine Culture - Final, Complete 12/21/19 Antimicrobic Susceptibility - Final, Complete 12/21/19 Gram Stain - Final, Complete 12/21/19 Aerobic Culture - Final, Complete 12/21/19 Blood Culture - Final, Complete NO GROWTH AFTER 5 DAYS Objective Assessment Fever - mild elevation - COVID - neg Leukocytosis - better Sulfa allergy - rash UTI - Serratia 12/20 MDR Hip pain - chronic but states is worsening. CT with chronic Osteomyelitis which is not treated with abx MAJOR - some better Multiple wounds Strep G/cornybacterium buttock wound. toe wound clean per Ortho Paraplegia H/o osteomyelitis of right hip - chronic Elevated CK ? from hip Plan Plan of Care dapto, meropenem and diflucan BC x 2 and am labs Wound care per wound team Ortho eval reviewed - Appreciate D/w nursing AMANDA ERAZO MD Dec 27, 2019 09:18
[2019-12-27 11:00] VITALS: BP 111/64
--- NOTE | 2019-12-27 13:13 | NUR ---
SS following up with discharge planning. SS phoned and faxed clinical updates to [facility], ; fax [phone]. SS will continue to follow for discharge planning.
[2019-12-27 15:00] VITALS: BP 108/67
[2019-12-27] MEDS: MEROPENEM 500 MG in IV NORMAL SALINE 50ML 50 ML IV SCH ×2 (15:10→22:13)
[2019-12-27] MEDS: DAPTOmycin (GENERIC) IVPB 450 MG in IV NORMAL SALINE 50ML 50 ML IV SCH (15:28)
--- NOTE | 2019-12-27 18:41 | NUR ---
WoundCare WOund care will see patient tomorrow for vac changes
--- NOTE | 2019-12-27 19:15 | NUR ---
Wound/Ostomy Care Wound Type/Assessment: Pt with multiple pressure ulcers to bilateral hips, coccyx and left ischium, of varying stages, see wound assessments flow sheet. Wounds appear fairly clean, with minimal slough, but all appear chronic in nature with undermining and thickened scar tissue around edges. Left great toe open amputation site is clean, to surface, red granulation tissue present. Treatment Recommendations/Plan: NPWT to bilateral hip and coccyx wounds, using black foam, pressure set at -150 mmHg d/t multiple wounds and tracking. Left ischium packed with Aquacel AG strip and covered with foam dressing. Left great toe dressed with Xeroform gauze, gauze and tape. Left lateral ankle red but blanchable, covered with foam dressing for protection. All dressings were pictured and measured. Education provided: to pt re: pressure redistribution, NPWT. Offloading surface/device: Pt is currently on a P500 bed and turns self every 2 hours Recommended Referrals/Tests: Discharge Recommendations for dressings: See treatment plan above.
--- NOTE | 2019-12-27 19:30 | RAD ---
Exam: Right pelvis 1 view INDICATION: Increased pain TECHNIQUE: Frontal view of the right hip Comparisons: CT 12/21/2019 FINDINGS: Dislocation at the right hip joint with posterior displacement of the femoral head. There is redemonstrated dysplastic appearance of the femoral head. Mild surrounding soft tissue swelling. IMPRESSION: Posterior dislocation at the right hip joint. Electronically signed by: Albert Muñoz MD (12/27/2019 7:27 PM) [id number]
[2019-12-27 20:41] VITALS: BP 119/63
[2019-12-27] MEDS: TAMSULOSIN 0.4 MG CAP.ER.24H. PO SCH (20:48)
[2019-12-27] MEDS: CITALOPRAM 20 MG TABLET. PO SCH (20:48)
[2019-12-27] MEDS: hydrOXYzine 25 MG TABLET PO SCH (20:48)
[2019-12-27 22:50] VITALS: BP 123/72
[2019-12-28] MEDS: HYDROcodone/APAP 10/325 1 TAB TABLET PO PRN ×4 (01:44→22:28)
[2019-12-28 03:25] VITALS: BP 108/52
[2019-12-28] MEDS: MORPHINE SULFATE 2 MG/ML VIAL. IV PRN ×3 (03:50→19:27)
[2019-12-28] MEDS: MEROPENEM 500 MG in IV NORMAL SALINE 50ML 50 ML IV SCH ×3 (06:00→21:44)
[2019-12-28 07:00] VITALS: BP 100/58
[2019-12-28] MEDS: amLODIPine BESYLATE 5 MG TABLET PO SCH (09:00)
--- NOTE | 2019-12-28 09:04 | PDOC ---
Infectious Disease Note Subjective Subjective feeling better, pain in hip present ROS ROS No nausea vomiting diarrhea chest pain shortness of breath Vital Sign Vital Signs Vital Signs Date Time Temp Pulse Resp B/P (MAP) Pulse Ox O2 Delivery O2 Flow Rate FiO2 12/28/19 07:00 98.6 98 16 100/58 (72) 95 Room Air 98.6 12/28/19 01:44 1.0 Physical Exam PHYSICAL EXAM GENERAL: Propped up in bed, alert and watching TV HEENT: Pupils equal and reactive. Normal conjunctivae. Oral cavity/pharynx is clear. He has good dentition. NECK: Supple, no JVD. LUNGS: Clear to auscultation. HEART: S1 and S2 ABDOMEN: Soft. Colostomy without complications. Suprapubic catheter without complications. (changed 12/20) EXTREMITIES: No clubbing, cyanosis. Left great toe wound- dressed SKIN: Warm to touch without generalized rash. Multiple tattoos. Multiple wounds NEUROLOGIC: Alert, paraplegic, answering questions appropriately. PIVs Labs Micro Microbiology 12/21/19 Urine Culture - Final, Complete 12/21/19 Antimicrobic Susceptibility - Final, Complete 12/21/19 Gram Stain - Final, Complete 12/21/19 Aerobic Culture - Final, Complete 12/21/19 Blood Culture - Final, Complete NO GROWTH AFTER 5 DAYS Objective Assessment Fever - mild elevation - COVID - neg Leukocytosis - better Sulfa allergy - rash UTI - Serratia 12/20 MDR Hip pain - chronic but states is worsening. CT with chronic Osteomyelitis which is not treated with abx MAJOR - some better Multiple wounds Strep G/cornybacterium buttock wound. toe wound clean per Ortho Paraplegia H/o osteomyelitis of right hip - chronic Elevated CK ? from hip Plan Plan of Care dapto, meropenem and diflucan BC x 2 and am labs Wound care per wound team Ortho eval reviewed - Appreciate D/w nursing AMANDA ERAZO MD Dec 28, 2019 09:04
[2019-12-28] MEDS: OXYBUTYNIN CHLORIDE 5 MG TABLET PO SCH ×2 (09:33→21:42)
[2019-12-28] MEDS: GABAPENTIN 400 MG CAPSULE. PO SCH ×2 (09:33→21:43)
[2019-12-28] MEDS: FOLIC ACID 1 MG TABLET. PO SCH (09:34)
[2019-12-28] MEDS: PANTOPRAZOLE 40 MG TABLET.DR. PO SCH (09:34)
[2019-12-28] MEDS: FERROUS SULFATE 325 MG TABLET. PO SCH (09:34)
[2019-12-28] MEDS: LACTOBACILLUS RHAMNOSUS GG 1 CAPSULE. PO SCH ×2 (09:34→21:42)
[2019-12-28] MEDS: CYCLOBENZAPRINE 10 MG TABLET. PO SCH ×2 (09:34→21:42)
[2019-12-28] MEDS: FLUCONAZOLE 100 MG TABLET. PO SCH (09:34)
[2019-12-28] MEDS: MULTIVITAMIN with MINERAL TABLET. PO SCH (09:34)
[2019-12-28] MEDS: ENOXAPARIN 40 MG/0.4 ML SYRINGE. SQ SCH (09:35)
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
[2019-12-28 11:00] VITALS: BP 110/69
--- NOTE | 2019-12-28 11:33 | NUR ---
SS following up with discharge planning. [facility] gave approval for [facility], ; fax [phone]. SS awaiting [facility] to notify SS of bed availability. SS will continue to follow for discharge planning.
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
--- NOTE | 2019-12-28 13:28 | RAD ---
Examination: Ultrasound kidneys HISTORY: History of acute renal insufficiency, chronic kidney disease COMPARISON: None available. FINDINGS: The right kidney measures 11.3 x 5.0 x 4.9 cm. The left kidney measures 12.9 x 5.8 x 5.5 cm. Mild bilateral hydronephrosis left greater than right. Echogenic appearing bilateral kidneys. Kirk catheter identified in the urinary bladder. IMPRESSION: 1. Mild bilateral hydronephrosis, left greater than right. 2. Echogenic appearing bilateral kidneys likely medical renal disease. Electronically signed by: Andi Ambrose MD (12/28/2019 1:25 PM) [id number]
[2019-12-28 15:00] VITALS: BP 108/63
[2019-12-28] MEDS: IV NORMAL SALINE 1000ML BAG 1,000 ML IV SCH (15:05)
[2019-12-28] MEDS: DAPTOmycin (GENERIC) IVPB 450 MG in IV NORMAL SALINE 50ML 50 ML IV SCH (16:23)
[2019-12-28 19:24] VITALS: BP 110/64
--- NOTE | 2019-12-28 19:30 | NUR ---
Pt lying on left side in bed with c/o pain to rt hip and wound areas, poc explained assessment completed vss will medicate pt and continue to monitor pt.Call light in reach.
[2019-12-28] MEDS: CITALOPRAM 20 MG TABLET. PO SCH (21:42)
[2019-12-28] MEDS: BACLOFEN 10 MG TABLET. PO PRN (21:43)
[2019-12-28] MEDS: TAMSULOSIN 0.4 MG CAP.ER.24H. PO SCH (21:43)
[2019-12-28] MEDS: hydrOXYzine 25 MG TABLET PO SCH ×2 (21:43→21:46)
[2019-12-28 22:28] VITALS: BP 109/76
[2019-12-29 02:45] VITALS: BP 109/71
[2019-12-29] MEDS: MORPHINE SULFATE 2 MG/ML VIAL. IV PRN ×3 (03:52→18:01)
[2019-12-29] MEDS: HYDROcodone/APAP 10/325 1 TAB TABLET PO PRN ×2 (06:00→16:06)
[2019-12-29] MEDS: PANTOPRAZOLE 40 MG TABLET.DR. PO SCH (06:00)
[2019-12-29] MEDS: MEROPENEM 500 MG in IV NORMAL SALINE 50ML 50 ML IV SCH ×3 (06:00→21:00)
[2019-12-29 06:05] VITALS: BP 106/63
[2019-12-29 08:09] LABS: BASO # 0.1 x10^3/uL (0.0-0.2); BASO % 1 % (0-3); EOS # 0.2 x10^3/uL (0.0-0.7); EOS % 2 % (0-3); HEMATOCRIT 23.7 % (39.0-53.0); LYMPH # 1.8 x10^3/uL (1.0-4.8); LYMPH % 24 % (24-48); MEAN CORPUSCULAR HEMOGLOBIN 27 pg (25-35); MEAN CORPUSCULAR HGB CONC 34 g/dL (31-37); MEAN CORPUSCULAR VOLUME 80 fL (79-100); MONO # 0.7 x10^3/uL (0.0-1.1); MONO % 9 % (0-9); NEUT # 4.9 x10^3/uL (1.8-7.7); NEUT % 65 % (31-73); PLATELET COUNT 859 x10^3/uL (140-400); RED BLOOD COUNT 2.98 x10^6/uL (4.30-5.70); RED CELL DISTRIBUTION WIDTH 17.4 % (11.5-14.5); WHITE BLOOD COUNT 7.5 x10^3/uL (4.0-11.0)
[2019-12-29 08:17] LABS: ALBUMIN 1.8 g/dL (3.4-5.0); ALBUMIN/GLOBULIN RATIO 0.3 (1.0-1.7); CALCIUM 8.5 mg/dL (8.5-10.1); CREATININE 1.7 mg/dL (0.7-1.3); GFR 46.1; POTASSIUM 4.4 mmol/L (3.5-5.1); TOTAL BILIRUBIN 0.1 mg/dL (0.2-1.0); TOTAL PROTEIN 7.8 g/dL (6.4-8.2)
--- NOTE | 2019-12-29 08:50 | PDOC ---
Infectious Disease Note Subjective Subjective cont to have pain in hip ROS ROS no n/v/d/sob Vital Sign Vital Signs Vital Signs Date Time Temp Pulse Resp B/P (MAP) Pulse Ox O2 Delivery O2 Flow Rate FiO2 12/29/19 07:00 16 96 Room Air 12/29/19 06:05 98.2 98 106/63 (77) 98.2 Physical Exam PHYSICAL EXAM GENERAL: Propped up in bed, alert and watching TV HEENT: Pupils equal and reactive. Normal conjunctivae. Oral cavity/pharynx is clear. He has good dentition. NECK: Supple, no JVD. LUNGS: Clear to auscultation. HEART: S1 and S2 ABDOMEN: Soft. Colostomy without complications. Suprapubic catheter without complications. (changed 12/20) EXTREMITIES: No clubbing, cyanosis. Left great toe wound- dressed SKIN: Warm to touch without generalized rash. Multiple tattoos. Multiple wounds NEUROLOGIC: Alert, paraplegic, answering questions appropriately. PIVs Labs Lab Laboratory Tests Test 12/29/19 06:50 White Blood Count 7.5 x10^3/uL (4.0-11.0) Red Blood Count 2.98 x10^6/uL (4.30-5.70) Hemoglobin 8.0 g/dL (13.0-17.5) Hematocrit 23.7 % (39.0-53.0) Mean Corpuscular Volume 80 fL (79-100) Mean Corpuscular Hemoglobin 27 pg (25-35) Mean Corpuscular Hemoglobin Concent 34 g/dL (31-37) Red Cell Distribution Width 17.4 % (11.5-14.5) Platelet Count 859 x10^3/uL (140-400) Neutrophils (%) (Auto) 65 % (31-73) Lymphocytes (%) (Auto) 24 % (24-48) Monocytes (%) (Auto) 9 % (0-9) Eosinophils (%) (Auto) 2 % (0-3) Basophils (%) (Auto) 1 % (0-3) Neutrophils # (Auto) 4.9 x10^3/uL (1.8-7.7) Lymphocytes # (Auto) 1.8 x10^3/uL (1.0-4.8) Monocytes # (Auto) 0.7 x10^3/uL (0.0-1.1) Eosinophils # (Auto) 0.2 x10^3/uL (0.0-0.7) Basophils # (Auto) 0.1 x10^3/uL (0.0-0.2) Sodium Level 137 mmol/L (136-145) Potassium Level 4.4 mmol/L (3.5-5.1) Chloride Level 101 mmol/L (98-107) Carbon Dioxide Level 28 mmol/L (21-32) Anion Gap 8 (6-14) Blood Urea Nitrogen 25 mg/dL (8-26) Creatinine 1.7 mg/dL (0.7-1.3) Estimated GFR (Cockcroft-Gault) 46.1 BUN/Creatinine Ratio 15 (6-20) Glucose Level 101 mg/dL (70-99) Calcium Level 8.5 mg/dL (8.5-10.1) Total Bilirubin 0.1 mg/dL (0.2-1.0) Aspartate Amino Transf (AST/SGOT) 23 U/L (15-37) Alanine Aminotransferase (ALT/SGPT) 31 U/L (16-63) Alkaline Phosphatase 54 U/L (46-116) Total Protein 7.8 g/dL (6.4-8.2) Albumin 1.8 g/dL (3.4-5.0) Albumin/Globulin Ratio 0.3 (1.0-1.7) Micro Microbiology 12/21/19 Urine Culture - Final, Complete 12/21/19 Antimicrobic Susceptibility - Final, Complete 12/21/19 Gram Stain - Final, Complete 12/21/19 Aerobic Culture - Final, Complete 12/21/19 Blood Culture - Final, Complete NO GROWTH AFTER 5 DAYS Objective Assessment Fever - mild elevation - COVID - neg Leukocytosis - better Sulfa allergy - rash UTI - Serratia 12/20 MDR Hip pain - chronic but states is worsening. CT with chronic Osteomyelitis which is not treated with abx MAJOR - some better Multiple wounds Strep G/cornybacterium buttock wound. toe wound clean per Ortho Paraplegia H/o osteomyelitis of right hip - chronic Elevated CK ? from hip Plan Plan of Care Waiting for LTAC evaluation Dapto, meropenem and diflucan BC x 2 and am labs Wound care per wound team Ortho eval reviewed - Appreciate D/w nursing AMANDA ERAZO MD Dec 29, 2019 08:50
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
[2019-12-29] MEDS: amLODIPine BESYLATE 5 MG TABLET PO SCH (09:21)
[2019-12-29] MEDS: GABAPENTIN 400 MG CAPSULE. PO SCH ×2 (09:21→21:00)
[2019-12-29] MEDS: ENOXAPARIN 40 MG/0.4 ML SYRINGE. SQ SCH (09:21)
[2019-12-29] MEDS: FOLIC ACID 1 MG TABLET. PO SCH (09:21)
[2019-12-29] MEDS: FLUCONAZOLE 100 MG TABLET. PO SCH (09:21)
[2019-12-29] MEDS: CYCLOBENZAPRINE 10 MG TABLET. PO SCH ×2 (09:21→20:59)
[2019-12-29] MEDS: OXYBUTYNIN CHLORIDE 5 MG TABLET PO SCH ×2 (09:21→20:59)
[2019-12-29] MEDS: LACTOBACILLUS RHAMNOSUS GG 1 CAPSULE. PO SCH ×2 (09:21→20:59)
[2019-12-29] MEDS: FERROUS SULFATE 325 MG TABLET. PO SCH (09:22)
[2019-12-29] MEDS: MULTIVITAMIN with MINERAL TABLET. PO SCH (09:22)
[2019-12-29 11:00] VITALS: BP 121/74
--- NOTE | 2019-12-29 13:26 | NUR ---
SS following up with discharge planning. SS reviewed pt chart and discussed with pt RN. Pt accepted at [facility], ; fax [phone]. Pt had dislocated hip and currently awaiting ortho. SS will continue to follow for discharge planning.
[2019-12-29 15:00] VITALS: BP 131/73
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
[2019-12-29] MEDS: DAPTOmycin (GENERIC) IVPB 450 MG in IV NORMAL SALINE 50ML 50 ML IV SCH (16:06)
[2019-12-29 20:00] VITALS: BP 126/71
[2019-12-29] MEDS: TAMSULOSIN 0.4 MG CAP.ER.24H. PO SCH (20:59)
[2019-12-29] MEDS: CITALOPRAM 20 MG TABLET. PO SCH (20:59)
[2019-12-29] MEDS: hydrOXYzine 25 MG TABLET PO SCH (21:00)
[2019-12-29 23:02] VITALS: BP 127/72
[2019-12-30] MEDS: MORPHINE SULFATE 2 MG/ML VIAL. IV PRN ×3 (01:55→13:25)
[2019-12-30] MEDS: BACLOFEN 10 MG TABLET. PO PRN (01:55)
[2019-12-30 03:00] VITALS: BP 107/61
[2019-12-30] MEDS: MEROPENEM 500 MG in IV NORMAL SALINE 50ML 50 ML IV SCH (06:16)
[2019-12-30 07:15] VITALS: BP 123/64
[2019-12-30] MEDS: PANTOPRAZOLE 40 MG TABLET.DR. PO SCH (07:38)
[2019-12-30] MEDS: HYDROcodone/APAP 10/325 1 TAB TABLET PO PRN (07:38)
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
[2019-12-30] MEDS: amLODIPine BESYLATE 5 MG TABLET PO SCH (09:16)
[2019-12-30] MEDS: FLUCONAZOLE 100 MG TABLET. PO SCH (09:16)
[2019-12-30] MEDS: MULTIVITAMIN with MINERAL TABLET. PO SCH (09:16)
[2019-12-30] MEDS: OXYBUTYNIN CHLORIDE 5 MG TABLET PO SCH (09:17)
[2019-12-30] MEDS: GABAPENTIN 400 MG CAPSULE. PO SCH (09:17)
[2019-12-30] MEDS: ENOXAPARIN 40 MG/0.4 ML SYRINGE. SQ SCH (09:17)
[2019-12-30] MEDS: FOLIC ACID 1 MG TABLET. PO SCH (09:17)
[2019-12-30] MEDS: LACTOBACILLUS RHAMNOSUS GG 1 CAPSULE. PO SCH (09:17)
[2019-12-30] MEDS: FERROUS SULFATE 325 MG TABLET. PO SCH (09:17)
[2019-12-30] MEDS: CYCLOBENZAPRINE 10 MG TABLET. PO SCH (09:17)
--- NOTE | 2019-12-30 09:24 | PDOC ---
Infectious Disease Note Subjective Subjective cont to have pain in hip ROS ROS No nausea vomiting diarrhea chest pain Vital Sign Vital Signs Vital Signs Date Time Temp Pulse Resp B/P (MAP) Pulse Ox O2 Delivery O2 Flow Rate FiO2 12/30/19 09:19 18 94 Room Air 12/30/19 09:16 72 123/64 12/30/19 08:38 1.0 12/30/19 07:15 98.4 98.4 Physical Exam PHYSICAL EXAM GENERAL: Propped up in bed, alert and watching TV HEENT: Pupils equal and reactive. Normal conjunctivae. Oral cavity/pharynx is clear. He has good dentition. NECK: Supple, no JVD. LUNGS: Clear to auscultation. HEART: S1 and S2 ABDOMEN: Soft. Colostomy without complications. Suprapubic catheter without complications. (changed 12/20) EXTREMITIES: No clubbing, cyanosis. Left great toe wound- dressed SKIN: Warm to touch without generalized rash. Multiple tattoos. Multiple wounds NEUROLOGIC: Alert, paraplegic, answering questions appropriately. PIVs Labs Micro Microbiology 12/21/19 Urine Culture - Final, Complete 12/21/19 Antimicrobic Susceptibility - Final, Complete 12/21/19 Gram Stain - Final, Complete 12/21/19 Aerobic Culture - Final, Complete 12/21/19 Blood Culture - Final, Complete NO GROWTH AFTER 5 DAYS Objective Assessment Fever - mild elevation - COVID - neg Leukocytosis - better Sulfa allergy - rash UTI - Serratia 12/20 MDR Hip pain - chronic but states is worsening. CT with chronic Osteomyelitis which is not treated with abx MAJOR - some better Multiple wounds Strep G/cornybacterium buttock wound. toe wound clean per Ortho Paraplegia H/o osteomyelitis of right hip - chronic Elevated CK ? from hip Plan Plan of Care Waiting for LTAC evaluation Dapto, meropenem and diflucan BC x 2 and am labs Wound care per wound team Ortho eval reviewed - Appreciate D/w nursing AMANDA ERAZO MD Dec 30, 2019 09:24
--- NOTE | 2019-12-30 09:25 | NUR ---
SS following up with discharge planning. SS reviewed pt chart and discussed with pt RN. Pt accepted at [facility], ; fax [phone]. Discharge orders received for [facility]. SS phoned and faxed discharge orders and clinical updates to [facility]. SS currently awaiting [facility] to contact me with bed availability and time. SS will continue to follow for discharge planning.
--- NOTE | 2019-12-30 10:17 | NUR ---
SS following up with discharge planning. Bed available at [facility], ; fax [phone]. Pt will discharge today and go to [facility] at 1400 via [facility] ambulance, . SS contacted Rhianna Osborn, , at the snf and notified. [facility] notified as well. Packet and ambulance form on chart. Pt's RN and guards notified.
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
--- NOTE | 2019-12-30 10:23 | SNU/HH DC ---
DISCHARGE ORDERS DISCHARGE INFORMATION: FINAL DIAGNOSIS Problems Medical Problems: (1) Decubitus ulcer Status: Acute (2) Fever Status: Acute (3) Suspected COVID-19 virus infection Status: Acute (4) UTI (urinary tract infection) Status: Acute CONDITION ON DISCHARGE: Stable CODE STATUS: Code Status: Full CUSTODIAL: SNF STAY <30 DAYS: No HOSPICE: HOSPICE: No HOSPICE EVAL & TREAT: No LTAC: ADMIT TO LTAC: Yes POST DISCHARGE ORDERS: ACTIVITY ORDERS: Bedrest today DIET AFTER DISCHARGE: Regular WOUND/INCISION CARE: Change dressing CHECKS AFTER DISCHARGE: CHECKS AFTER DISCHARGE: Check blood press - daily TREATMENT/EQUIPMENT ORDERS: ADAPTIVE EQUIPMENT NEEDED: Grab bars INFUSION EQUIPMENT NEEDED: PICC Line Physical Therapy For: Evalulation/Treatment Occupational Therapy For: Evaluation/Treatment DISCHARGE MEDICATIONS: Home Meds Reported Medications Ketorolac Tromethamine (KETOROLAC TROMETHAMINE) 60 Mg/2 Ml Vial, 60 MG IM BID PRN for PAIN, EACH 12/21/19 [ceftriaxone] No Conflict Check, 1 GM DAILY for wound 12/21/19 Pnv Cmb#95/Ferrous Fumarate/Fa ( TABLET) 1 Each Tablet, 1 EACH PO DAILY for wound healing, TAB 12/21/19 Tamsulosin Hcl (FLOMAX) 0.4 Mg Cap.er.24h, 0.4 MG PO HS for bladde, TAB 12/21/19 Oxybutynin Chloride (OXYBUTYNIN CHLORIDE ER) 10 Mg Tab.er.24, 10 MG PO DAILY for bladder, TAB.SR 12/21/19 Omeprazole (OMEPRAZOLE) 40 Mg Capsule.dr, 40 MG PO DAILY for gerd, CAP 12/21/19 Ibuprofen (IBUPROFEN) 600 Mg Tablet, 600 MG PO BID for pain, TAB 12/21/19 Ibuprofen (IBUPROFEN) 400 Mg Tablet, 400 MG PO PRN Q6HRS PRN for INFLAMMATION, TAB 12/21/19 Hydroxyzine Hcl (HYDROXYZINE HCL) 25 Mg Tablet, 50 MG PO HS for anxiety, TAB 12/21/19 Gabapentin (GABAPENTIN) 600 Mg Tablet, 1200 MG PO BID for NEUROGENIC PAIN, TAB 12/21/19 Folic Acid (Folic Acid) 0.8 Mg Capsule, 0.8 MG PO DAILY for supplement, CAP 12/21/19 Ferrous Sulfate (FERROUS SULFATE) 325 Mg Tablet, 325 MG PO DAILY for iron supplement, TAB 12/21/19 Cyclobenzaprine Hcl (CYCLOBENZAPRINE HCL) 10 Mg Tablet, 10 MG PO BID for musclespasm, TAB 12/21/19 Citalopram Hydrobromide (CELEXA) 20 Mg Tablet, 20 MG PO HS for depression, anxiety, TAB 12/21/19 Baclofen (BACLOFEN) 20 Mg Tablet, 20 MG PO BID PRN for MUSCLE SPASMS, #30 TAB 0 Refills 12/21/19 Amlodipine Besylate (AMLODIPINE BESYLATE) 5 Mg Tablet, 5 MG PO DAILY for hypertension, TAB 12/21/19 Acetaminophen (ACETAMINOPHEN) 500 Mg Tablet, 500 MG PO BID for pain, TAB 12/21/19 BARBARA THOMSON MD Dec 30, 2019 10:23
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
[2019-12-30 11:10] VITALS: BP 120/71
--- NOTE | 2019-12-30 12:05 | NUR ---
Wound Care Received call from ETHAN Kahn informing that pt was discharging to [facility] today at 2 p.m. Instructed RN to remove all wound vac dressings and foam, picture and measure all wounds, and redress with wet to dry dressings, vac placed in soiled utility room, as WCRNs were still seeing pts in the clinic, ETHAN v/finn.
--- NOTE | 2019-12-30 14:25 | NUR ---
Discharge Note: INNA VARGAS [facility] Discharge instructions and discharge home medications reviewed with Nurse Giuliana at [facility] and a copy given to [facility] fire department. All questions have been answered and understanding verbalized. Patient iv was left in place. Patient is accompanied by x2 correctional officers.
== END 2019-12-30 14:00 | DRG 871 ==
LOC: ER 01:12 → EEVIPCON 01:12 → 6 SOUTH 03:00 → 2 SOUTH 12-26 23:19
PROVIDERS: ADMIT Internal Medicine; ATTEND Internal Medicine
DX: A41.9 Sepsis, unspecified organism (principal); N17.0 Acute kidney failure with tubular necrosis; E46 Unspecified protein-calorie malnutrition; N39.0 Urinary tract infection, site not specified; G82.20 Paraplegia, unspecified; D64.9 Anemia, unspecified; E83.42 Hypomagnesemia; I12.9 Hypertensive chronic kidney disease with stage 1 through stage 4 chronic kidney disease, or unspecified chronic kidney disease; N18.9 Chronic kidney disease, unspecified; Z20.828 Contact with and (suspected) exposure to other viral communicable diseases; Z82.3 Family history of stroke; Z82.49 Family history of ischemic heart disease and other diseases of the circulatory system; Z83.3 Family history of diabetes mellitus; Z86.73 Personal history of transient ischemic attack (TIA), and cerebral infarction without residual deficits; Z87.891 Personal history of nicotine dependence; Z88.2 Allergy status to sulfonamides; Z89.412 Acquired absence of left great toe; Z89.429 Acquired absence of other toe(s), unspecified side; Z93.3 Colostomy status; L89.159 Pressure ulcer of sacral region, unspecified stage; N31.9 Neuromuscular dysfunction of bladder, unspecified
CPT/HCPCS: 36415; 71045; 72192; 73501; 76770; 80048; 80053; 81001; 82550; 83605; 83735; 84443; 85025; 85027; 85610; 87040; 87070; 87077; 87086; 87186; 93005; 93306; 96360; J0878; J1650; J2185; J2270; J2543; J3475; J7030; 99285-25; G0378; U0003-CS

== ENCOUNTER 2020-03-04 19:41 | Emergency (ER) | payer OTHER ==
[~2020-03-04] VITALS: Ht 177.8 cm; Wt 72.7 kg
[~2020-03-04 19:41] MED LIST changes: +ACET500T68 PO; +AMLO5TAB10 PO; +BACL20TA PO; +CITA20TA9 PO; +CYCL10TA2 PO; +FERR325T14 PO; +FOLI0.8C PO; +GABA600T7 PO; +HYDR25TA PO; +IBUP-1007 PO; +IBUP-1027 PO; +KETO60VI IM; +OMEP40CA45 PO; +OXYB10TA26 PO; +PNV1TABL25 PO; +TAMS0.4C97 PO; +ceftriaxone
[2020-03-04 20:11] LABS: BASO % 0 % (0-3); BILIRUBIN,URINE NEGATIVE (NEG); CLARITY,URINE CLEAR; COLOR,URINE YELLOW; EOS % 0 % (0-3); HEMATOCRIT 29.4 % (39.0-53.0); HEMOGLOBIN 9.6 g/dL (13.0-17.5); LYMPH # 0.9 x10^3/uL (1.0-4.8); LYMPH % 11 % (24-48); MEAN CORPUSCULAR HEMOGLOBIN 27 pg (25-35); MEAN CORPUSCULAR HGB CONC 33 g/dL (31-37); MEAN CORPUSCULAR VOLUME 82 fL (79-100); MONO # 0.6 x10^3/uL (0.0-1.1); MONO % 8 % (0-9); NEUT # 6.1 x10^3/uL (1.8-7.7); NEUT % 81 % (31-73); NITRITE,URINE NEGATIVE (NEG); PH,URINE 6.5 (<5.0-8.0); PLATELET COUNT 411 x10^3/uL (140-400); PROTEIN,URINE 30 mg/dL (NEG-TRACE); RED BLOOD COUNT 3.59 x10^6/uL (4.30-5.70); UROBILINOGEN,URINE 0.2 mg/dL (0.2 mg/dL); WHITE BLOOD COUNT 7.5 x10^3/uL (4.0-11.0)
[2020-03-04 20:19] LABS: BACTERIA,URINE MOD /HPF (0-FEW); CALCIUM 8.7 mg/dL (8.5-10.1); CREATININE 1.4 mg/dL (0.7-1.3); GFR 57.7; POTASSIUM 4.1 mmol/L (3.5-5.1); SQUAMOUS EPITHELIAL CELL,UR FEW /LPF; WBC,URINE TNTC /HPF (0-4); YEAST,URINE PRESENT /HPF
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
[2020-03-04] MEDS ORDERED: PIPERACILLIN/TAZOBACTAM 3.375 GM in IV NORMAL SALINE 50ML 50 ML IV ONE (20:30)
[2020-03-04] MEDS ORDERED: METOCLOPRAMIDE HCL 10 MG/2 ML VIAL. IVP ONE (20:30)
[2020-03-04] MEDS ORDERED: MORPHINE SULFATE 10 MG/ML VIAL. IV ONE (20:30)
[2020-03-04] MEDS ORDERED: IV NORMAL SALINE 1000ML BAG 1,000 ML IV ONE (20:30)
[2020-03-04 20:34] LABS: ALBUMIN 2.9 g/dL (3.4-5.0); ALBUMIN/GLOBULIN RATIO 0.6 (1.0-1.7); TOTAL BILIRUBIN 0.2 mg/dL (0.2-1.0); TOTAL PROTEIN 7.8 g/dL (6.4-8.2)
[2020-03-04 22:00] VITALS: BP 125/84
== END 2020-03-04 22:13 | disposition short-term general hospital (02) ==
LOC: EEVIPCON 19:41 → ER 19:41
DX: K56.699 Other intestinal obstruction unspecified as to partial versus complete obstruction (principal); R10.9 Unspecified abdominal pain; R11.2 Nausea with vomiting, unspecified; I10 Essential (primary) hypertension; I25.2 Old myocardial infarction; Z90.89 Acquired absence of other organs; Z98.890 Other specified postprocedural states; Z87.891 Personal history of nicotine dependence; Z88.2 Allergy status to sulfonamides
CPT/HCPCS: 36415; 80053; 81001; 83605; 85025; 96365; 96375; 99284; J2270; J2543; J2765; J7030